=== PATIENT | male | born 1940 | race African-American/Black ===

== ENCOUNTER 2020-09-02 15:29 | Emergency (ER) | payer OTHER ==
[2020-09-02] MEDS ORDERED: ONDANSETRON 4 MG/2 ML VIAL ONE (16:30)
[2020-09-02] MEDS ORDERED: PANTOPRAZOLE 40 MG INJ ONE (16:30)
[2020-09-02] MEDS ORDERED: NA CHLORIDE 0.9% 1,000 ML ONE (16:31)
[2020-09-02] MEDS ORDERED: PANTOPRAZOLE INJ 80 MG in NA CHLORIDE 0.9% 250 ML IV SCH (17:00)
[2020-09-02 17:08] LABS: Absolute Lymphocytes (CBC) 1.5 K/uL (0.7-4.9); Basophils % 0.4 % (0-1.3); Hematocrit 32.5 % (39.6-49.0); Lymphocytes % 9.1 % (15.3-44.8); MPV 6.8 fL (7.6-11.3); RBC Red Blood Cell Count 4.05 M/uL (4.33-5.43)
[2020-09-02 17:09] LABS: Protime INR 1.27
--- NOTE | 2020-09-02 17:25 | RAD REPORT ---
EXAM DESCRIPTION: RAD - Chest Single View - 09/02/2020 5:18 pm CLINICAL HISTORY: COUGH COMPARISON: Portable May 2015 TECHNIQUE: AP portable chest image was obtained 09/02/2020 5:18 pm . FINDINGS: Prominent fibro emphysematous changes are present. There are numerous granulomatous type c alcifications throughout the lung parenchyma and at each hilum. Pattern is not clearly different from the comparison. Heart and vasculature are normal. No measurable pleural effusion and no pneumothorax . No acute bony abnormality seen. No acute aortic findings suspected. IMPRESSION: COPD findings similar to prior imaging. No acute process seen.
[2020-09-02 17:30] LABS: ALT/SGPT 18 U/L (12-78); AST/SGOT 9 U/L (15-37); Albumin 3.4 g/dL (3.4-5.0); Alkaline Phosphatase 74 U/L (45-117); BUN Blood Urea Nitrogen 19 mg/dL (7-18); Bicarbonate 25 mmol/L (21-32); Bilirubin Direct < 0.1 mg/dL (0-0.2); Bilirubin Total 0.4 mg/dL (0.2-1.0); Glucose Level 153 mg/dL (74-106); Magnesium 2.2 mg/dL (1.8-2.4); NT PRO-BNP 70 pg/mL (<450); Potassium 3.6 mmol/L (3.5-5.1); Protein, Total 7.1 g/dL (6.4-8.2); Sodium Level 142 mmol/L (136-145); Troponin (Emerg Dept Use Only) < 0.02 ng/mL (0.0-0.045)
[2020-09-02 17:37] LABS: Anisocytosis 3+; Blood Morphology Comment NOTED (NOT SEEN); Platelet Estimate ADEQ; White Blood Cell Scan OK (OK)
[2020-09-02] MEDS ORDERED: PIPER/TAZO/NS 3.375gm 3.375 GM/100 ML BAG ONE (17:52)
[2020-09-02 17:55] LABS: Lipase 114 U/L (73-393)
--- NOTE | 2020-09-02 18:04 | RAD REPORT ---
EXAM DESCRIPTION: CT - Chest Abdomen Pelvis W Cont - 09/02/2020 5:50 pm CLINICAL HISTORY: Abdominal distention;Dyspnea COMPARISON: CTANGIO CHEST FOR PE dated 06/06/2015; Chest Single View dated 09/02/2020 TECHNIQUE: Following dynamic enhancement using 100 milliliters nonionic IV contrast, axial imaging o f the chest, abdomen and pelvis was performed. Biphasic technique was utilized through the abdomen. No oral contrast administered. All CT scans are performed using dose optimization technique as appropriate and may include automated exposure control or mA/KV adjustment according to patient size. FINDINGS: Prominent COPD changes are present. Focal parenchymal scarring lateral right upper lobe sh ows no progressive change from 2015. Numerous granulomatous calcifications are seen throughout the carola ng parenchyma, mediastinal region in each hilum. No pleural effusion, pleural thickening or pneumotho rax. No significant aortic or pulmonary arterial tree finding. Mediastinal and hilar regions show no mass or abnormal lymphadenopathy. No chest wall mass or axillary lymphadenopathy. The liver, spleen and pancreas show no suspicious findings. Gallbladder and biliary tree are unremark able. Gallstones can be occult on CT imaging. Symmetric renal function is seen with no mass or hydro nephrosis. No adrenal abnormalities. Stomach is distended by large quantity of food and fluid. No gastric wall thickening or mass. Gastric outlet obstruction is not suspected. No small bowel or large bowel dilatation. No acute GI findings seen. No urinary bladder abnormality suspected. Bladder and pelvic floor assessment are substantially limited due to the bilateral hip implant spray artifact affects. No acute or destructive bony process. No significant vascular findings. IMPRESSION: Advanced COPD changes of the chest. No acute findings seen and no significant change fro m 2015. CT abdomen and pelvis imaging shows no emergent finding. Stomach is distended by a large quantity of food and fluid. A gastric mass is not identifiable on CT imaging.
--- NOTE | 2020-09-02 18:28 | ER ---
Nurse's Notes [facility] Name: Jeffrey Seymour Age: 80 yrs Sex: Male : 1940 Arrival Date: 09/02/2020 Time: 15:34 Bed 8 Private MD: Diagnosis: Vomiting;Gastrointestinal hemorrhage, unspecified-upper;Chronic obstructive pulmonary disease with (acute) exacerbation;Anemia, unspecified;Abdominal tenderness;Elevated white blood cell count Presentation: 09/02 15:34 Chief complaint: EMS states: called out for being nauseous and vomiting several times, em reports being dark brown vomit, had hot shakes and has been weak since about noon today, 20 G LAC, denies pain, reports shortness of breath, hx of lung cancer. Coronavirus screen: Client denies travel out of the [place] in the last 14 days. Ebola Screen: Patient negative for fever greater than or equal to 101.5 degrees Fahrenheit, and additional compatible Ebola Virus Disease symptoms Patient denies exposure to infectious person. Patient denies travel to an Ebola-affected area in the 21 days before illness onset. No symptoms or risks identified at this time. Initial Sepsis Screen: Does the patient meet any 2 criteria? HR > 90 bpm. No. Patient's initial sepsis screen is negative. Does the patient have a suspected source of infection? No. Patient's initial sepsis screen is negative. Risk Assessment: Do you want to hurt yourself or someone else? Patient reports no desire to harm self or others. Onset of symptoms was September 02, 2020. 15:34 Method Of Arrival: EMS: [facility] em 15:34 Acuity: [place] 3 em Triage Assessment: 15:34 General: Appears in no apparent distress. slender, well groomed, Behavior is calm, tw2 cooperative, appropriate for age. Pain: Denies pain. GI: Reports vomiting, bloody vomit, dark. Historical: - Allergies: 15:38 No Known Allergies; em - PMHx: 15:38 Hypertension; lung cancer; em - PSHx: 15:38 Carpal Tunnel Repair; catarcts removed; Appendectomy; em - Immunization history:: Flu vaccine is not up to date. - Social history:: Smoking status: Patient denies any tobacco usage or history of. - Family history:: not pertinent. Screenin:02 Abuse screen: Denies threats or abuse. Nutritional screening: No deficits noted. tw2 Tuberculosis screening: No symptoms or risk factors identified. Fall Risk Secondary diagnosis (15 points) impaired mobility. Assessment: 15:40 General: Appears in no apparent distress. slender, well groomed, Behavior is calm, tw2 cooperative, appropriate for age. Pain: Denies pain. Neuro: Level of Consciousness is awake, alert, obeys commands, Oriented to person, place, time, situation. Cardiovascular: Heart tones S1 S2 Capillary refill < 3 seconds. Respiratory: Airway is patent Respiratory effort is even, unlabored, Respiratory pattern is regular, symmetrical, Breath sounds are clear bilaterally. GI: "i had vomited blood just today". 15:40 : No signs and/or symptoms were reported regarding the genitourinary system. EENT: No tw2 signs and/or symptoms were reported regarding the EENT system. Derm: No signs and/or symptoms reported regarding the dermatologic system. Skin is dry, Skin is pale, Skin temperature is cool. Musculoskeletal: Range of motion: intact in all extremities. 16:02 Reassessment: provider at bedside at this time. tw2 16:36 Reassessment: Patient appears in no apparent distress at this time. No changes from tw2 previously documented assessment. Patient and/or family updated on plan of care and expected duration. Pain level reassessed. 17:19 Reassessment: Patient appears in no apparent distress at this time. No changes from tw2 previously documented assessment. Patient and/or family updated on plan of care and expected duration. Pain level reassessed. 17:55 Reassessment: Patient appears in no apparent distress at this time. No changes from tw2 previously documented assessment. Patient and/or family updated on plan of care and expected duration. Pain level reassessed. pt back from CT at this time. 18:18 Reassessment: Patient appears in no apparent distress at this time. No changes from tw2 previously documented assessment. Patient and/or family updated on plan of care and expected duration. Pain level reassessed. 18:41 Reassessment: Patient appears in no apparent distress at this time. No changes from tw2 previously documented assessment. Patient and/or family updated on plan of care and expected duration. Pain level reassessed. 19:15 General: Appears in no apparent distress. Behavior is calm, cooperative, appropriate lp1 for age. Pain: Denies pain. Neuro: Level of Consciousness is awake, alert, obeys commands, Oriented to person, place, time, situation. Cardiovascular: Patient's skin is warm and dry. Rhythm is sinus tachycardia. Respiratory: Respiratory effort is even, unlabored. GI: Abdomen is non-distended. : No signs and/or symptoms were reported regarding the genitourinary system. Derm: Skin is intact, Skin is dry, Skin is pale. 19:44 Reassessment: Report given to ROX Prince at [facility] for patient transfer to lp1 2461. 20:50 Reassessment: [facility] at bedside to transfer. lp1 20:50 Reassessment: Family at bedside, aware of transfer. Neuro: Level of Consciousness is lp1 awake, alert, obeys commands. Respiratory: Respiratory effort is even, unlabored. Vital Signs: 15:34 BP 133 / 78; Pulse 108; Resp 20; Pulse Ox 97% on R/A; Weight 63.5 kg; Height 5 ft. 10 em in. (177.80 cm); Pain 0/10; 15:35 Temp 97.5(O); tw2 16:36 BP 114 / 70; Pulse 113; Resp 22; Pulse Ox 98% on R/A; tw2 17:20 BP 114 / 60; Pulse 105; Resp 22; Pulse Ox 95% on R/A; tw2 18:17 BP 124 / 67; Pulse 108; Resp 21; Pulse Ox 95% on R/A; tw2 18:41 BP 91 / 61; Pulse 100; Resp 16; Pulse Ox 100% on Nebulizer Mask; tw2 19:30 BP 124 / 75; Pulse 115; Resp 21; Pulse Ox 96% on R/A; lp1 20:00 BP 104 / 63; Pulse 106; Resp 15; Pulse Ox 95% on R/A; lp1 20:59 BP 102 / 63; Pulse 106; Resp 15; Temp 98.3(O); Pulse Ox 96% on R/A; lp1 15:34 Body Mass Index 20.09 (63.50 kg, 177.80 cm) em ED Course: 15:34 Patient arrived in ED. em 15:34 Placed in gown. Bed in low position. Call light in reach. Side rails up X 1. Cardiac tw2 monitor on. Pulse ox on. NIBP on. Warm blanket given. 15:37 Triage completed. em 15:38 Ray Londono MD is Attending Physician. reynaldo 15:38 Arm band placed on. em 16:15 Apryl Harvey RN is Primary Nurse. tw2 16:30 Inserted saline lock: 20 gauge in right antecubital area, using aseptic technique. tw2 Blood collected. Maintain EMS IV. Dressing intact. Site clean \\T\\ dry. Gauge \\T\\ site: 20 G LEFT ac. 16:30 Served as a lobster fisherman during rectal exam. tw2 16:54 Missed attempt(s): 20 gauge in right forearm. Bleeding controlled, band aid applied, tw2 catheter tip intact. Inserted saline lock: 22 gauge in right forearm, using aseptic technique. 17:18 XRAY Chest (1 view) In Process Unspecified. EDMS 17:[address] with LIT Nixon. tw2 17:50 CT Chest, Abdomen, Pelvis - W/Contrast: iv only In Process Unspecified. EDMS 18:[address] Londono with Guy Linn from the [facility] Transfer [place].eb 18:35 connected the GI acquisition manager from [facility] with Dr. Londono for patient transfer eb center. 18:[address] Rodriguez the hospitalist acquisition manager for [facility] with Dr. Londono for patient transfer consultation. 18:56 administrative approval given by guy Linn/ patient has been accepted to [facility] bed 2461/ Dr. Rodriguez has accepted the patient in transfer/report to be called to [phone]. 19:07 Report given to ROX Bay and ROX Sauer. tw2 20:59 Patient transferred, IV remains in place. lp1 Administered Medications: 16:30 Drug: NS 0.9% 500 ml Route: IV; Rate: bolus; Site: right antecubital; tw2 17:09 Follow up: Rate change 125 ml/hr; IV Intake: 500ml tw2 16:32 Drug: Zofran (Ondansetron) 4 mg Route: IVP; Site: right antecubital; tw2 17:05 Follow up: Response: No adverse reaction tw2 16:34 Drug: ProTONIX 80 mg Route: IVP; Site: right antecubital; tw2 16:55 Follow up: Response: No adverse reaction tw2 16:54 Drug: ProTONIX 8 mg/hr Route: IV; Rate: 25 ml/hr; Site: right forearm; tw2 20:59 Follow up: IV Status: Infusion continued upon transfer lp1 17:09 Drug: NS 0.9% 1000 ml Route: IV; Rate: 125 ml/hr; Site: right forearm; tw2 20:59 Follow up: IV Status: Infusion continued upon transfer lp1 18:10 Drug: Zosyn 3.375 grams Route: IVPB; Infused Over: 60 mins; Site: right antecubital; tw2 19:24 Follow up: IV Status: Completed infusion lp1 18:35 Drug: Xopenex 1.25 mg Route: Inhalation; tw2 18:36 Drug: AtroVENT Aerosol 0.5 mg Route: Inhalation; tw2 Intake: 17:09 IV: 500ml; Total: 500ml. tw2 Outcome: 18:27 ER care complete, transfer ordered by MD. jacobs 19:36 Condition: stable lp1 19:36 Instructed on the need for transfer. 21:00 Transferred by ground EMS to [facility], Transfer form completed. lp1 X-rays sent w/ patient. Note: Patient's med list sent with transfer 21:06 Patient left the ED. lp1 Signatures: Dispatcher [employer] EDRay Vigil MD MD cha Munoz, Edgar RN Shanique Dawson RN RN lp1 Apryl Harvey RN RN tw2 Marta Candelaria Corrections: (The following items were deleted from the chart) 16:39 16:36 BP 114 / 70; Pulse 124bpm; Resp 22bpm; Pulse Ox 98% RA; tw2 tw2 16:40 16:39 Temp 97.5F Oral; tw2 tw2 16:42 15:40 GI: "i had vomited blood just today" tw2 tw2 16:42 15:40 Derm: No signs and/or symptoms reported regarding the dermatologic system. tw2 tw2
--- NOTE | 2020-09-02 18:28 | EDPHYS ---
Physician Documentation [facility] Name: Jeffrey Seymour Age: 80 yrs Sex: Male : 1940 Arrival Date: 09/02/2020 Time: 15:34 Bed 8 Private MD: ELIZABETH Physician Ray Londono HPI: 09/02 16:15 This 80 yrs old Black Male presents to ER via EMS with complaints of Nausea/Vomiting. reynaldo 16:15 The patient presents to the emergency department with nausea, vomiting, that is reynaldo intermittent. Onset: The symptoms/episode began/occurred just prior to arrival, this morning. Possible causes: unknown. The symptoms are aggravated by nothing. The symptoms are alleviated by nothing. Associated signs and symptoms: Pertinent positives: belching, GI bleeding. Severity of symptoms: At their worst the symptoms were mild moderate in the emergency department the symptoms have improved mildly. The patient has not experienced similar symptoms in the past. Historical: - Allergies: 15:38 No Known Allergies; em - PMHx: 15:38 Hypertension; lung cancer; em - PSHx: 15:38 Carpal Tunnel Repair; catarcts removed; Appendectomy; em - Immunization history:: Flu vaccine is not up to date. - Social history:: Smoking status: Patient denies any tobacco usage or history of. - Family history:: not pertinent. ROS: 16:15 Constitutional: Negative for fever, chills, and weight loss, Eyes: Negative for injury, reynalod pain, redness, and discharge, ENT: Negative for injury, pain, and discharge, Neck: Negative for injury, pain, and swelling, Cardiovascular: Negative for chest pain, palpitations, and edema, Respiratory: Negative for shortness of breath, cough, wheezing, and pleuritic chest pain, Back: Negative for injury and pain, : Negative for injury, bleeding, discharge, and swelling, MS/Extremity: Negative for injury and deformity, Neuro: Negative for headache, weakness, numbness, tingling, and seizure, Psych: Negative for depression, anxiety, suicide ideation, homicidal ideation, and hallucinations, Allergy/Immunology: Negative for hives, rash, and allergies, Endocrine: Negative for neck swelling, polydipsia, polyuria, polyphagia, and marked weight changes, Hematologic/Lymphatic: Negative for swollen nodes, abnormal bleeding, and unusual bruising. 16:15 Abdomen/GI: Positive for abdominal pain, nausea and vomiting, vomiting, abdominal cramps, black/tarry stool, rectal bleeding. 16:15 Skin: Positive for pallor. Exam: 16:15 Constitutional: This is a well developed, well nourished patient who is awake, alert, reynaldo and in no acute distress. Head/Face: Normocephalic, atraumatic. Eyes: Pupils equal round and reactive to light, extra-ocular motions intact. Lids and lashes normal. Conjunctiva and sclera are non-icteric and not injected. Cornea within normal limits. Periorbital areas with no swelling, redness, or edema. ENT: Nares patent. No nasal discharge, no septal abnormalities noted. Tympanic membranes are normal and external auditory canals are clear. Oropharynx with no redness, swelling, or masses, exudates, or evidence of obstruction, uvula midline. Mucous membranes moist. Neck: Trachea midline, no thyromegaly or masses palpated, and no cervical lymphadenopathy. Supple, full range of motion without nuchal rigidity, or vertebral point tenderness. No Meningismus. Chest/axilla: Normal chest wall appearance and motion. Nontender with no deformity. No lesions are appreciated. Respiratory: Lungs have equal breath sounds bilaterally, clear to auscultation and percussion. No rales, rhonchi or wheezes noted. No increased work of breathing, no retractions or nasal flaring. Back: No spinal tenderness. No costovertebral tenderness. Full range of motion. Male : Normal genitalia with no discharge or lesions. MS/ Extremity: Pulses equal, no cyanosis. Neurovascular intact. Full, normal range of motion. Neuro: Awake and alert, GCS 15, oriented to person, place, time, and situation. Cranial nerves II-XII grossly intact. Motor strength 5/5 in all extremities. Sensory grossly intact. Cerebellar exam normal. Normal gait. Psych: Awake, alert, with orientation to person, place and time. Behavior, mood, and affect are within normal limits. 16:15 Cardiovascular: Rate: tachycardic, Rhythm: regular, Pulses: Pulses are 4+ in bilateral radial, brachial, femoral, popliteal, posterior tibial and and dorsalis pedis arteries.. Heart sounds: normal, Edema: is not appreciated, JVD: is not appreciated. 16:15 Musculoskeletal/extremity: DVT Exam: No signs of deep vein thrombosis. no pain, no swelling, no tenderness, negative Homans' sign noted on exam, no appreciated bluish discoloration, no erythema, no increased warmth. 16:15 Skin: Appearance: Color: pale. 16:19 ECG was reviewed by the Attending Physician. reynaldo 16:26 Abdomen/GI: Rectal exam: is unremarkable, Prostate: normal, rectal tone normal, Stool: reynaldo guaiac positive, hemorrhoid(s), are not appreciated, mass, is not appreciated, swelling, is not appreciated, tenderness, is not appreciated, fecal impaction, is not appreciated, the exam is chaperoned by a family member. Vital Signs: 15:34 BP 133 / 78; Pulse 108; Resp 20; Pulse Ox 97% on R/A; Weight 63.5 kg; Height 5 ft. 10 em in. (177.80 cm); Pain 0/10; 15:35 Temp 97.5(O); tw2 16:36 BP 114 / 70; Pulse 113; Resp 22; Pulse Ox 98% on R/A; tw2 17:20 BP 114 / 60; Pulse 105; Resp 22; Pulse Ox 95% on R/A; tw2 18:17 BP 124 / 67; Pulse 108; Resp 21; Pulse Ox 95% on R/A; tw2 18:41 BP 91 / 61; Pulse 100; Resp 16; Pulse Ox 100% on Nebulizer Mask; tw2 19:30 BP 124 / 75; Pulse 115; Resp 21; Pulse Ox 96% on R/A; lp1 20:00 BP 104 / 63; Pulse 106; Resp 15; Pulse Ox 95% on R/A; lp1 20:59 BP 102 / 63; Pulse 106; Resp 15; Temp 98.3(O); Pulse Ox 96% on R/A; lp1 15:34 Body Mass Index 20.09 (63.50 kg, 177.80 cm) em MDM: 15:39 Patient medically screened. [facility] 16:18 Differential diagnosis: gastritis, pancreatitis. Data reviewed: vital signs, nurses reynaldo notes, lab test result(s), EKG, radiologic studies, plain films. 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 Test interpretation: by ED physician or midlevel provider: ECG, plain radiologic studies. Counseling: I had a detailed discussion with the patient and/or guardian regarding: the historical points, exam findings, and any diagnostic results supporting the discharge/admit diagnosis, the presence of at least one elevated blood pressure reading (>120/80) during this emergency department visit, lab results, radiology results, the need to transfer to another facility, for higher level of care, [facility] does not immediately have the required specialist. 09/02 16:15 Order name: Basic Metabolic Panel; Complete Time: 18:03 [facility] 09/02 16:15 Order name: CBC with Diff; Complete Time: 17:38 [facility] 09/02 16:15 Order name: LFT's; Complete Time: 18:03 [facility] 09/02 16:15 Order name: Magnesium; Complete Time: 18:03 [facility] 09/02 16:15 Order name: NT PRO-BNP; Complete Time: 18:03 [facility] 09/02 16:15 Order name: PT-INR; Complete Time: 17:30 [facility] 09/02 16:15 Order name: Troponin (emerg Dept Use Only); Complete Time: 18:03 [facility] 09/02 16:15 Order name: Type And Screen; Complete Time: 18:03 [facility] 09/02 16:30 Order name: Bb Add On eb 09/02 17:32 Order name: Blood Culture Adult (2) [facility] 09/02 17:32 Order name: Lactate; Complete Time: 18:47 [facility] 09/02 17:37 Order name: CBC Smear Scan; Complete Time: 17:38 EDUT 09/02 17:48 Order name: Lipase; Complete Time: 18:03 EDUT 09/02 16:15 Order name: XRAY Chest (1 view); Complete Time: 17:30 [facility] 09/02 16:15 Order name: EKG; Complete Time: 16:16 [facility] 09/02 16:15 Order name: Cardiac monitoring; Complete Time: 16:17 [facility] 09/02 16:15 Order name: EKG - Nurse/Tech; Complete Time: 16:17 [facility] 09/02 16:15 Order name: IV Saline Lock; Complete Time: 16:43 [facility] 09/02 16:15 Order name: Labs collected and sent; Complete Time: 16:43 [facility] 09/02 17:32 Order name: CT Chest, Abdomen, Pelvis - W/Contrast: iv only; Complete Time: 18:47 [facility] 09/02 18:21 Order name: ABO/RH no charge; Complete Time: 18:47 EDMS 09/02 16:15 Order name: O2 Per Protocol; Complete Time: 16:17 reynaldo 09/02 16:15 Order name: O2 Sat Monitoring; Complete Time: 16:17 reynaldo 09/02 16:15 Order name: IV - Large Bore; Complete Time: 16:43 reynaldo EC:19 Rate is 111 beats/min. Rhythm is regular. QRS [place] is Normal. [place] interval is normal. reynaldo QRS interval is normal. QT interval is normal. No Q waves. T waves are Normal. No ST changes noted. Clinical impression: Sinus tachycardia and No evidence of ischemia. Interpreted by me. Reviewed by me. Administered Medications: 16:30 Drug: NS 0.9% 500 ml Route: IV; Rate: bolus; Site: right antecubital; tw2 17:09 Follow up: Rate change 125 ml/hr; IV Intake: 500ml tw2 16:32 Drug: Zofran (Ondansetron) 4 mg Route: IVP; Site: right antecubital; tw2 17:05 Follow up: Response: No adverse reaction tw2 16:34 Drug: ProTONIX 80 mg Route: IVP; Site: right antecubital; tw2 16:55 Follow up: Response: No adverse reaction tw2 16:54 Drug: ProTONIX 8 mg/hr Route: IV; Rate: 25 ml/hr; Site: right forearm; tw2 20:59 Follow up: IV Status: Infusion continued upon transfer lp1 17:09 Drug: NS 0.9% 1000 ml Route: IV; Rate: 125 ml/hr; Site: right forearm; tw2 20:59 Follow up: IV Status: Infusion continued upon transfer lp1 18:10 Drug: Zosyn 3.375 grams Route: IVPB; Infused Over: 60 mins; Site: right antecubital; tw2 19:24 Follow up: IV Status: Completed infusion lp1 18:35 Drug: Xopenex 1.25 mg Route: Inhalation; tw2 18:36 Drug: AtroVENT Aerosol 0.5 mg Route: Inhalation; tw2 Disposition: 09/02/20 18:[address] [facility]. Diagnosis are Vomiting, Gastrointestinal hemorrhage, unspecified - upper, Chronic obstructive pulmonary disease with (acute) exacerbation, Anemia, unspecified, Abdominal tenderness, Elevated white blood cell count. - Reason for transfer: Higher level of care. - Accepting physician is to [facility], tele. - Condition is Fair. - Problem is new. - Symptoms have improved. Signatures: Dispatcher [employer] EDRay Vigil MD MD cha Munoz, Edgar, RN RN Shanique Morris RN RN lp1 Apryl Harvey RN RN tw2 Corrections: (The following items were deleted from the chart) 17:49 17:40 LIPASE+C.LAB.BRZ ordered. [facility] 21:06 18:27 09/02/2020 18:[address] [facility]. lp1 Diagnosis is Vomiting; Gastrointestinal hemorrhage, unspecified - upper; Chronic obstructive pulmonary disease with (acute) exacerbation; Anemia, unspecified; Abdominal tenderness; Elevated white blood cell count. Reason for transfer: Higher level of care. Accepting physician is to [facility], tele. Condition is Fair. Problem is new. Symptoms have improved. reynaldo
[2020-09-02] MEDS ORDERED: IPRATROPIUM BROM 0.5MG/2.5ML ONE (18:44)
[2020-09-02] MEDS ORDERED: LEVALBUTEROL 1.25 MG/3 ML NEB ONE (18:44)
[2020-09-02 21:43] VITALS: BP 102/63; TEMP 98.3; O2SAT 96
--- NOTE | 2020-09-04 11:14 | EKG ---
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
== END 2020-09-02 21:06 | disposition short-term general hospital (02) ==
LOC: ER 15:29
DX: K92.2 Gastrointestinal hemorrhage, unspecified (principal); J44.1 Chronic obstructive pulmonary disease with (acute) exacerbation; D64.9 Anemia, unspecified; D72.829 Elevated white blood cell count, unspecified; R10.819 Abdominal tenderness, unspecified site; I10 Essential (primary) hypertension; Z85.118 Personal history of other malignant neoplasm of bronchus and lung
CPT/HCPCS: 93005; 87040 ×2; 85025; 80048; 36415; 86900; 83735; 86850; 85610; 86901; 80076; 83605; 84484; 83690; 83880; 71260; 74177; 71045; 99285; Q9967; C9113 ×2; J2543; J7050; J7030; J2405

== ENCOUNTER 2022-10-26 00:20 | Inpatient (IN) | payer OTHER ==
--- OUTSIDE RECORDS SUMMARY | 2022-10-26 00:25 | XMS REPORT | Continuity of Care Document ---
:1940 Author Organization [facility] t Address [address] [place] [address] Care Team Providers Name Role Phone Keegan Romero MD [facility] Primary Care Physician Case Dean Attending Clinician Unavailable BAM JOLLY Attending Clinician Unavailable Tadeo Freeman Attending Clinician Unavailable BAHMAN MONTOYA Attending Clinician Unavailable BAM JOLLY Admitting Clinician Unavailable Keegan Romero Admitting Clinician Unavailable Payers Payer Name Policy Type Policy Number Effective Date Expiration Date S natalia [facility] [id number] 2020 00:00:00 (NON-CONTRACTED) Problems Condition Condition Condition Status Onset Resolution Last Treating Co mments Source Name Details Category Date Date Treatment Clinician Date Gastrointe Gastrointe Disease Active 2019-[address] stinal stinal 0-10 [facility] hemorrhage hemorrhage 00:00: Me dical , , 00 Center unspecifie unspecifie d d gastrointe gastrointe stinal stinal hemorrhage hemorrhage type type Allergies, Adverse Reactions, Alerts Allergy Allergy Status Severity Reaction(s) Onset Inactive Treating Comm ents Source Name Type Date Date Clinician hydrocod DA Active [place] 2019-11 [facility] Clear 00:00: Andrew 00 [facility] hydrocod DA Active [place] RASH; 2020-1 [facility] ITCHING 0-19 Clear 00:00: Andrew 00 [facility] On license of [facility] Hydrocod Drug Active Hives 2019-[address] [facility] one-Acet Allergy 0-10 [facility] aminophe 00:00: Medical n 00 Center HYDROCOD Allergy Active Hives 2019-[address] ONE-ACET 0-10 [facility] AMINOPHE 00:00: Medical N 00 [place] Hydrocod Propensi Active Itching Metho di one ty to 2-18 st adverse 00:00: Hospita reaction 00 l s to drug Oxycodon Propensi Active Other (See uknown Me thodi e ty to Comments) 2-18 st adverse 00:00: Hospita reaction 00 l s to drug NO KNOWN Allergy Active [facility] ALLERGIE S Social History Social Habit Start Date Stop Date Quantity Comments Source Alcohol intake 2020-09-05 2020-09-05 [facility] of [facility] (finding) Tobacco use and 2020-09-03 2020-09-03 Never used SAJI Shaw kes exposure 00:00:00 00:00:00 [facility] Cigarettes smoked 2018-04-17 2018-04-[address] current (pack per 00:00:00 00:00:00 [facility] day) - Reported Cigarette 2018-04-17 2018-04-17 [facility] pack-years 00:00:00 00:00:00 Hospital History of tobacco 2017-03-25 Cigarette Smoker [facility] use 00:00:00 Hospital Sex Ass[birth year] At [birth year] SAJI Schneider 00:00:00 00:00:00 [facility] Smoking Status Start Date Stop Date Source Former smoker 2020-09-03 00:00:00 2020-09-03 00:00:00 [facility] Medications Ordered Filled Start Stop Current Ordering Indication Dosage Frequency Signature Comments Components Source Medication Medication Date Date Medication? Clinician (SIG) Name Name aspirin 325 2019-11 Yes 325mg QD Take [address] MG EC 0-10 mg by [facility] tablet 21:34: mouth Medical 40 daily. Center fluticasone 2019-11 Yes 1{puff} Q.5D Inhale [address] -umeclidin- 0-10 puff by [facility] vilanter 21:34: mouth via Medi autumn (Trelegy 40 inhaler 2 [place] Ellip) (two) 100-62.5-25 times mcg DsDv daily. multivitami 2019-11 Yes 1{capsu QD Take [address] n capsule 0-10 le} capsule by Luke s 21:34: mouth Medical 40 daily. [place] albuterol-i 2019-11 Yes 2{puff} Inhale [address] pratropium 0-10 puffs by [facility] (Combivent 21:34: mouth via Me dical Respimat) 40 inhaler Center 20-100 every 6 mcg/actuati (six) on Mist hours as inhaler needed for Wheezing or Shortness of Breath. pravastatin 2019-11 Yes 40mg QD Take [address] (PRAVACHOL) 0-10 by mouth Luke s 40 MG 21:34: nightly. Medical tablet 40 [place] telmisartan 2019-11 Yes 80mg QD Take [address] (MICARDIS) 0-10 by mouth [facility] 80 MG 21:34: daily. Medical tablet 40 [place] finasteride 2019-11 Yes 5mg QD Take [address] (PROSCAR) 5 0-10 by mouth Luke s mg tablet 21:34: daily. Medica l 40 [place] gabapentin 2019-11 Yes 300mg QD Take [address] (NEURONTIN) 0-10 mg by [facility] 300 MG 21:34: mouth Medical capsule 40 daily. [place] megestroL 2019-11 Yes 40mg QD Take [address] (MEGACE) 40 0-10 by mouth Luke s MG tablet 21:34: daily. Medica l 40 [place] aspirin 325 2019-11 Yes 325mg QD Take [address] MG EC 0-10 mg by [facility] tablet 21:34: mouth Medical 40 daily. [place] fluticasone 2019-11 Yes 1{puff} Q.5D Inhale [address] -umeclidin- 0-10 puff by [facility] vilanter 21:34: mouth via Medi autumn (Trelegy 40 inhaler 2 [place] Ellip) (two) 100-62.5-25 times mcg DsDv daily. multivitami 2019-11 Yes 1{capsu QD Take [address] n capsule 0-10 le} capsule by Luke s 21:34: mouth Medical 40 daily. Center albuterol-i 2019-11 Yes 2{puff} Inhale [address] pratropium 0-10 puffs by [facility] (Combivent 21:34: mouth via Me dical Respimat) 40 inhaler Center 20-100 every 6 mcg/actuati (six) on Mist hours as inhaler needed for Wheezing or Shortness of Breath. pravastatin 2019-11 Yes 40mg QD Take [address] (PRAVACHOL) 0-10 by mouth Luke s 40 MG 21:34: nightly. Medical tablet 40 [place] telmisartan 2019-11 Yes 80mg QD Take [address] (MICARDIS) 0-10 by mouth [facility] 80 MG 21:34: daily. Medical tablet 40 [place] finasteride 2019-11 Yes 5mg QD Take [address] (PROSCAR) 5 0-10 by mouth Luke s mg tablet 21:34: daily. Medica l 40 [place] gabapentin 2019-11 Yes 300mg QD Take [address] (NEURONTIN) 0-10 mg by [facility] 300 MG 21:34: mouth Medical capsule 40 daily. [place] megestroL 2019-11 Yes 40mg QD Take [address] (MEGACE) 40 0-10 by mouth Luke s MG tablet 21:34: daily. Medica l 40 [place] pantoprazol 2019-11 Yes Take [address] [facility] e 0-10 tablet bid [facility] (PROTONIX) 00:00: x 6 weeks Me dical 20 MG 00 then Center tablet resume once a day. pantoprazol 2019-11 Yes Take [address] [facility] [facility] e 0-10 tablet bid [facility] (PROTONIX) 00:00: x 6 weeks Me dical 20 MG 00 then Center tablet resume once a day. fluticasone Yes Inhale 1 Me thodi -salmeterol 5-[address] (ADVAIR) 11:10: a day by Hospi ta 250-50 52 inhalation l mcg/dose route. DISKUS aspirin 325 Yes Take by Met hodi MG tablet 5-[address] 11:10: route. Hospita 52 l ipratropium Yes Inhale 2 Me thodi -albuterol 5-[address] (COMBIVENT 11:10: times a Hosp evgeny RESPIMAT) 52 day by l 20-100 inhalation mcg/actuati route. on mist inhaler omega Yes Fish Oil Methodi 3-dha-epa-f 5-24 st ghulam oil 11:10: Hospita (FISH OIL) 52 l 100-160-1,0 00 mg capsule gabapentin Yes Take 1 Metho di (NEURONTIN) 5-[address] 300 mg 11:10: times a Hospita capsule 52 day by l oral route. losartan Yes Take 1 Methodi (COZAAR) 5-[address] 100 MG 11:10: every day Hospit a tablet 52 by oral l route. megestrol Yes Take 1 Method i (MEGACE) 40 5-[address] MG tablet 11:10: twice a Hospi ta 52 day by l oral route. famotidine Yes Take 1 Metho di (PEPCID AC) 5-[address] 10 MG 11:10: every day Hospita tablet 52 by oral l route. pravastatin Yes Take 1 Meth marija (PRAVACHOL) 5-[address] 40 MG 11:10: every day Hospita tablet 52 by oral l route. tiotropium Yes Spiriva Meth marija bromide 5-[address] (SPIRIVA 11:10: Hospita RESPIMAT) 52 l 1.25 mcg/actuati on mist fluticasone Yes Inhale 1 Me thodi -salmeterol 5-[address] (ADVAIR) 11:10: a day by Hospi ta 250-50 52 inhalation l mcg/dose route. DISKUS aspirin 325 Yes Take by Met hodi MG tablet 5-[address] 11:10: route. Hospita 52 l ipratropium Yes Inhale 2 Me thodi -albuterol 5-[address] (COMBIVENT 11:10: times a Hosp evgeny RESPIMAT) 52 day by l 20-100 inhalation mcg/actuati route. on mist inhaler omega Yes Fish Oil Methodi 3-dha-epa-f 5-24 st ghulam oil 11:10: Hospita (FISH OIL) 52 l 100-160-1,0 00 mg capsule gabapentin Yes Take 1 Metho di (NEURONTIN) 5-[address] 300 mg 11:10: times a Hospita capsule 52 day by l oral route. losartan Yes Take 1 Methodi (COZAAR) 5-[address] 100 MG 11:10: every day Hospit a tablet 52 by oral l route. megestrol Yes Take 1 Method i (MEGACE) 40 5-[address] MG tablet 11:10: twice a Hospi ta 52 day by l oral route. famotidine Yes Take 1 Metho di (PEPCID AC) 5-[address] 10 MG 11:10: every day Hospita tablet 52 by oral l route. pravastatin Yes Take 1 Meth marija (PRAVACHOL) 5-[address] 40 MG 11:10: every day Hospita tablet 52 by oral l route. tiotropium Yes Spiriva Meth marija bromide 5-[address] (SPIRIVA 11:10: Hospita RESPIMAT) 52 l 1.25 mcg/actuati on mist Procedures This patient has no known procedures. Plan of Care Planned Activity Planned Date Details Comments Source Future Scheduled 2022-10-26 HEPATITIS B VACCINES Met [facility] Test 00:23:30 (1 of 3 - 3-dose series) [code = HEPATITIS B VACCINES (1 of 3 - 3-dose series)] Future Scheduled 2022-10-26 COVID-19 VACCINE (#1) [facility] Test 00:23:30 [code = COVID-19 VACCINE (#1)] Future Scheduled 2022-10-26 SHINGLES VACCINES (1 Met [facility] Test 00:23:30 of 2) [code = SHINGLES VACCINES (1 of 2)] Future Scheduled 2022-10-26 65+ [facility]CCAL [facility] 00:23:30 VACCINE (1 - PCV) [code = 65+ PNEUMOCOCCAL VACCINE (1 - PCV)] Future Scheduled 2022-10-26 INFLUENZA VACCINE [facility] Test 00:23:30 [code = INFLUENZA VACCINE] Future Scheduled 2022-07-27 HEPATITIS B VACCINES Met [facility] Test 04:54:22 (1 of 3 - 3-dose series) [code = HEPATITIS B VACCINES (1 of 3 - 3-dose series)] Future Scheduled 2022-07-27 COVID-19 VACCINE (#1) [facility] Test 04:54:22 [code = COVID-19 VACCINE (#1)] Future Scheduled 2022-07-27 SHINGLES VACCINES ([facility] 04:54:22 of 2) [code = SHINGLES VACCINES (1 of 2)] Future Scheduled 2022-07-27 65+ [facility]OCCAL [facility] Test 04:54:22 VACCINE (1 - PCV) [code = 65+ PNEUMOCOCCAL VACCINE (1 - PCV)] Future Scheduled 2022-07-27 INFLUENZA VACCINE [facility] Test 04:54:22 [code = INFLUENZA VACCINE] Future Scheduled 2022-07-26 INFLUENZA VACCINE (#1) [facility] Test 00:00:00 [code = INFLUENZA Medical Ce nter VACCINE (#1)] Future Scheduled 2022-07-26 INFLUENZA VACCINE (#1) [facility] Test 00:00:00 [code = INFLUENZA Medical Ce nter VACCINE (#1)] Future Scheduled 2021-11-[address] [facility] Test 00:00:00 (12+) [code = Medical Center DEPRESSION SCREENING (12+)] Future Scheduled 2021-11-25 FALLS RISK SCREENING [facility] Test 00:00:00 [code = FALLS RISK Medical C enter SCREENING] Future Scheduled 2021-11-[address] [facility] Test 00:00:00 (12+) [code = Medical Center DEPRESSION SCREENING (12+)] Future Scheduled 2021-11-25 FALLS RISK SCREENING [facility] Test 00:00:00 [code = FALLS RISK Medical C enter SCREENING] Future Scheduled 2021-09-[address] [facility] Test 00:00:00 Counseling and Medical Cente r Screening (12+) [code = Tobacco Cessation Counseling and Screening (12+)] Future Scheduled 2005 PNEUMOCOCCAL 65+ [facility] Test 00:00:00 (1 - PCV) [code = Medical Ce nter PNEUMOCOCCAL 65+ YRS (1 - PCV)] Future Scheduled 2005 PNEUMOCOCCAL 65+ YRS [facility] Test 00:00:00 (1 - PCV) [code = Medical Ce nter PNEUMOCOCCAL 65+ YRS (1 - PCV)] Future Scheduled 1990 SHINGLES VACCINES ([address] [facility] Test 00:00:00 of 2) [code = SHINGLES Medic al Center VACCINES (1 of 2)] Future Scheduled 1990 SHINGLES VACCINES ([address] [facility] Test 00:00:00 of 2) [code = SHINGLES Medic al Center VACCINES (1 of 2)] Future Scheduled 1959 DTAP/TDAP/TD VACCINES [facility] Test 00:00:00 (1 - Tdap) [code = Medical C enter DTAP/TDAP/TD VACCINES (1 - Tdap)] Future Scheduled 1959 DTAP/TDAP/TD VACCINES [facility] Test 00:00:00 (1 - Tdap) [code = Medical C enter DTAP/TDAP/TD VACCINES (1 - Tdap)] Future Scheduled 1940 COVID-19 VACCINE (#1) [facility] Test 00:00:00 [code = COVID-[address] VACCINE (#1)] Future Scheduled 1940 COVID-19 VACCINE (#1) [facility] Test 00:00:00 [code = COVID-[address] VACCINE (#1)] Encounters Start End Encounter Admission Attending Care Care Encounter Source Date/Time Date/Time Type Type Clinicians Facility Department ID 2020-09-[address] [facility] [id number] [facility] 11:30:00 Case 84 [facility] 2020-09-02 Inpatient TARA JOLLY [facility] Gastro [id number] SLE 23:23:00 BAM 2022-08-10 2022-08-[address] [facility] [id number] [facility] 05:30:00 05:30:00 Tadeo 05 [facility] 2020-07-07 2020-07-07 Outpatient JAN, [facility] [id number] [place] 00:00:00 00:00:00 DHATRI [address] Results Test Description Test Time Test Comments Results Result Comments Source SURGICAL 2022-08-13 13:26:00 Test Item Value Reference Range Interpretation Comme nts SURGICAL RUN (test DATE: 08/13/22 [place] - LAB PAGE 1 RUN TIME: 1326 Specimen Inquiry RUN USER: INTERFACE code = PATIENT: SRMARY HI 05 LOC: [place] #: [id number] AGE/SX: 82/M ROOM: RE08/10/22REG DR: Tadeo Freeman MD : 40 BED: DIS: [place] [facility] [place] SPEC #: [id number] RECD: 08/10/221423 STATUS: TIMMY SULLIVAN #: [id number] ERICH: 08/10/22- SUBM DR: Tadeo Freeman MD ENTERED: 08/10/22 SP TYPE: SURGICAL OTHR DR: Keegan Romero MD ORDERED: [id number], ANATOMIC SPEC COMMENTS: SAME COPIES TO: [place] [address] [place] [address] [address] [place] [address] Keegan Romero MD [address] [place] [address] Dr Valentin [address] [place], [place] [address] PROCEDURES: [id number] (08/10/221424) TISSUES: A. STOMACH BIOPSY/POLYP CLINICAL HISTORY EGD-SEVERE GASTRITIS; COLON-SOLID STOOL , NO BLEEDING FINAL DIAGNOSIS Stomach, biopsy: Mild chronic gastritis. GROSS DESCRIPTION Received i n formalin labeled gastric biopsy are 3 an tissue fragments measuring up to 0.3cm (A). Technical c becki performed at [facility],[address] [place] [id number] Unless gross only, the diagnosis is based upon microscopic examination.Immunohistochemistry: This test was developed and its performance characteristicsdetermined by this laboratory. It has not been approved nor does it need approvalby the [place] FDA. Appropriate posi tive and negative controls are reviewed and judgedto be acceptable. This laboratory is certified unde r the Clinical Laboratory ImprovementAmendments (CLIA-88) as qualified to perform high complexity c linical laboratory testing. CONTINUED ON NEXT PAGE RUN DATE: 08/13/22 [place] - LAB PAGE 2 RUN TIME: 1326 Specimen Inquiry RUN USER: INTERFACE SPEC #: [id number] PATIENT: MARY MARQUEZ #[id number] (Continued) --- MICROSCOPIC DESCRIPTION Sections of the gastric biopsy reveal fundic type gastric mucosa with mild chronicinflammation in the lamina propria. No significant active acute inflammation identified. CLINICAL INFORMATION CHANGE IN BOWEL HABITS, ABD PAIN WT LOSS Signed SIGNATURE ON FILE AnupAkil 08/13/22 1326 END OF REPORT BASIC METABOLIC [id number] 07:21:00 Test Item Value Reference Range Interpretation Comments SODIUM (test code = NA) 140 mEq/L 134-147 N POTASSIUM (test code = 3.5 mEq/L 3.4-5.0 K) CHLORIDE (test code = 102 mEq/L 100-108 N CL) CARBON DIOXIDE (test 32 mEq/l 21-33 N code = CO2) ANION GAP (test code = 10 0-20 N GAP) GLUCOSE (test code = 101 mg/dL 70-110 N GLU) BLOOD UREA NITROGEN 9 mg/dL 7-18 (test code = BUN) GLOMERULAR FILTRATION 80.8 70-80 H Units of measure = RATE (test code = GFR) ml/mi n/1.73 m2 CREATININE (test code = 0.9 mg/dL 0.6-1.3 N CREAT) CALCIUM (test code = 9.2 mg/dL 8.0-10.5 N CA) BASIC METABOLIC [id number] 10:48:00 Test Item Value Reference Range Interpretation Comments SODIUM (test code = NA) 138 mEq/L 134-147 N POTASSIUM (test code = 4.6 mEq/L 3.4-5.0 N K) CHLORIDE (test code = 101 mEq/L 100-108 N CL) CARBON DIOXIDE (test 29 mEq/l 21-33 N code = CO2) ANION GAP (test code = 13 0-20 N GAP) GLUCOSE (test code = 93 mg/dL 70-110 N GLU) BLOOD UREA NITROGEN 7 mg/dL 7-18 N (test code = BUN) GLOMERULAR FILTRATION 92.5 70-80 H Units of measure = RATE (test code = GFR) ml/mi n/1.73 m2 CREATININE (test code = 0.8 mg/dL 0.6-1.3 N CREAT) CALCIUM (test code = 10.2 mg/dL 8.0-10.5 N CA) CBC W/AUTO [id number] 10:36:00 Test Item Value Reference Range Interpretation Comments WHITE BLOOD CELL (test code = 12.5 x10 3/uL 4.5-11.0 H WBC) RED BLOOD CELL (test code = 5.03 x10 6/uL 4.00-5.60 N RBC) HEMOGLOBIN (test code = HGB) 15.7 g/dL 12.5-16.9 N HEMATOCRIT (test code = HCT) 46.1 % 37.5-50.7 N MEAN CELL VOLUME (test code = 91.7 fL 81.0-99.0 N MCV) MEAN CELL HGB (test code = 31.2 pg 27.0-33.0 N MCH) MEAN CELL HGB CONCETRATION 34.1 g/dL 33.0-37.0 N (test code = MCHC) RED CELL DISTRIBUTION WIDTH CV 16.5 % 11.5-14.5 H (test code = RDW) RED CELL DISTRIBUTION WIDTH SD 55.7 fL 37.0-54.0 H (test code = RDW-SD) PLATELET COUNT (test code = 213 x10 3/uL 150-400 N PLT) MEAN PLATELET VOLUME (test 8.9 fL 7.0-9.0 N code = MPV) NEUTROPHIL % (test code = NT%) 84.6 % 56.0-77.0 H IMMATURE GRANULOCYTE % (test 0.6 % 0.0-2.0 N code = IG%) LYMPHOCYTE % (test code = LY%) 7.4 % 14.0-32.0 L MONOCYTE % (test code = MO%) 5.9 % 4.8-9.0 N EOSINOPHIL % (test code = EO%) 0.9 % 0.3-3.7 N BASOPHIL % (test code = BA%) 0.6 % 0.0-2.0 N NUCLEATED RBC % (test code = 0.0 % 0-0 N NRBC%) NEUTROPHIL # (test code = NT#) 10.56 x10 3/uL 2.0-7.6 H IMMATURE GRANULOCYTE # (test 0.08 x10 3/uL 0.00-0.03 H code = IG#) LYMPHOCYTE # (test code = LY#) 0.92 x10 3/uL 1.0-3.8 L MONOCYTE # (test code = MO#) 0.74 x10 3/uL 0.1-0.8 N EOSINOPHIL # (test code = EO#) 0.11 x10 3/uL 0.0-0.2 N BASOPHIL # (test code = BA#) 0.08 x10 3/uL 0.0-0.2 N NUCLEATED RBC # (test code = 0.00 x10 3/uL 0.0-0.1 N NRBC#) MANUAL DIFF REQUIRED (test NO code = MDIFF) - XR CHEST 2 [id number] 00:00:00 [facility] : 1940 Sex: M FAX: Tadeo Little MD [phone] [place]: St: PRE FAX: Radha Maldonado Name: MARY MARQUEZ [facility] [place] : 1940 Age/S: 82/M [address] [place] [address] Unit #: [id number] Loc: [place] [address] Phys: Radha Maldonado NP Acct: [id number] Dis Date: Status: PRE SDC PHONE #: [phone] Exam Date: 08/08/2022 1105 FAX #: [phone] Reason: PREOP EXAMS: CPT CODE: [id number] XR CHEST 2 V 96283 PROCEDURE INFORMATION: Exam: XR Chest Exam date and time: 08/08/2022 10:55 AM Age: 82 years old Clinical indication: Pre- operative exam; Respiratory screening exam; Additional info: Preop TECHNIQUE: Imaging protocol: Radiologic exam of the chest. Views: 2 views. PA and Lateral COMPARISON: DX XR CHEST 2 V 09/12/2020 12:42 PM FINDINGS: Lungs: Nonspecific ill-defined nodular densities lateral to the left hilar region and in the lateral left mid lung not definitely seen on prior study. Recommend chest CT to exclude malignant tumorous change or other nonspecific alveolitis. Probable mild fibrosis in the lateral right upper lung with small amount of focal pleural thickening in this region similar to prior study. Scatteredsmall calcified granulomas seen about the lungs. Mild patchy reticular opacity in the left lung basemay represent atelectasis, pneumonia or other nonspecific alveolitis. No other focal infiltrates within the lungs. Increased lung volumes suggest emphysematous changes. No definite pleural effusion bilaterally. No pneumothorax bilaterally. Pleural spaces: See "Lungs" finding. Heart/Mediastinum: Cardiac and mediastinal structures are stable including aortic calcification and calcified bilateral hilar nodes. Bones/joints: Degenerative changes are seen about the thoracic spine. IMPRESSION: Nonspecific ill-defined nodular densities lateral to the left hilar region and in the lateral left mid lung not definitely seen on prior study. Recommend chest CT to exclude malignant tumorous change or other nonspecific alveolitis. Probable mild fibrosis in the lateral right upper lung with small amount of focalpleural thickening in this region similar to prior study. Scattered small calcified granulomas seen about the lungs. Mild patchy reticular opacity in the left lung base may represent atelectasis, pneumonia or other nonspecific alveolitis. No other focal infiltrates within the lungs. Increased lung volumes suggest emphysematous changes. PAGE 1 Signed Report (CONTINUED) FAX: Tadeo Little MD [phone] [place]: St: PRE FAX: Radha Maldonado Name: MARY MARQUEZ [facility] : 1940 Age/S: 82/M [address] [place] [address] Unit #: [id number] Loc: [place] [address] Phys: Radha Maldonado [employer]OX ST[employer]ER Acct: [id number] Dis Date: Status: PRE SDC PHONE #: [phone] Exam Date: 08/08/2022 1105 FAX #: [phone] Reason: PREOP EXAMS: CPT CODE: [id number] XR CHEST 2 V 66928 (Continued) at 1132 Reported and signed by: Awais Booker M.D. CC: Tadeo Freeman MD; Radha Maldonado [employer]OX STACKER Technologist: RT Lin(R) Trnscrd Date/Time/By: 08/08/2022 (1132) : By: [email or web address] Orig Print D/T: S: 08/08/2022 (7933) PAGE 2 Signed ReportBASIC METABOLIC [id number] 13:09:00 Test Item Value Reference Range Interpretation Comments SODIUM (test code = NA) 142 mEq/L 134-147 N POTASSIUM (test code = 4.3 mEq/L 3.4-5.0 N K) CHLORIDE (test code = 107 mEq/L 100-108 N CL) CARBON DIOXIDE (test 26 mEq/L 21-33 N code = CO2) ANION GAP (test code = 13 0-20 N GAP) GLUCOSE (test code = 89 mg/dL 70-110 N GLU) BLOOD UREA NITROGEN 10 mg/dL 7-18 N (test code = BUN) GLOMERULAR FILTRATION 81.2 70-80 H Units of measure = RATE (test code = GFR) ml/mi n/1.73 m2 CREATININE (test code = 0.9 mg/dL 0.6-1.3 N CREAT) CALCIUM (test code = 9.2 mg/dL 8.0-10.5 N CA) Novel Coronavirus 2018 [id number] 02:23:00 Test Item Value Reference Range Interpretation Comments Novel Coronavirus Negative Negative Positive r esults are 2019 Inhouse (test indicativ e of the presence code = COVNONPUI) ofSARS-CoV -2 RNA, clinical correlation wit h patient historyand othe r diagnostic info rmation is necessary to determinepatien t infection status. Positiv e results do not rule out bacterial infection or co -infection with other viru ses. Negative result s do not preclude SARS-C oV-2 infection andsh ould not be used as the lobo e basis for patient managementdecis ions. Negative result s must be combined with otherclinical observations, p atient history, and epidemiological information . Detection of SARS-CoV-2 RNA may be affe cted bysample collec tion methods, storag e conditions, and /or stageof infection. Gila l RNA mutations, vacc inations, antiviraltherap eutics, antibiotics, chemotherapeuti c orimmunosuppres john drugs have not been e valuated for effectson d etection. Results are for the identification of SARS-CoV-2 RNA usingthe [employer] M2000 Sy stem under the FDA Emergen cy UseAuthorizatio n. The testing is perf ormed by personneltraine d in the procedures for the [place] M2000 molecular diagnostic SARS-CoV-2 assa y in vitro. CBC W/AUTO [id number] 14:42:00 Test Item Value Reference Range Interpretation Comments WHITE BLOOD CELL (test code = 12.7 x10 3/uL 4.5-11.0 H WBC) RED BLOOD CELL (test code = 3.35 x10 6/uL 4.00-5.60 L RBC) HEMOGLOBIN (test code = HGB) 8.7 g/dL 12.5-16.9 L HEMATOCRIT (test code = HCT) 28.4 % 37.5-50.7 L MEAN CELL VOLUME (test code = 84.8 fL 81.0-99.0 N MCV) MEAN CELL HGB (test code = MCH) 26.0 pg 27.0-33.0 L MEAN CELL HGB CONCETRATION 30.6 g/dL 33.0-37.0 L (test code = MCHC) RED CELL DISTRIBUTION WIDTH CV 24.6 % 11.5-14.5 H (test code = RDW) RED CELL DISTRIBUTION WIDTH SD 75.4 fL 37.0-54.0 H (test code = RDW-SD) PLATELET COUNT (test code = 361 x10 3/uL 150-400 N PLT) MEAN PLATELET VOLUME (test code 8.3 fL 7.0-9.0 N = MPV) NEUTROPHIL % (test code = NT%) 74.7 % 56.0-77.0 N IMMATURE GRANULOCYTE % (test 0.5 % 0.0-2.0 N code = IG%) LYMPHOCYTE % (test code = LY%) 15.1 % 14.0-32.0 N MONOCYTE % (test code = MO%) 8.0 % 4.8-9.0 N EOSINOPHIL % (test code = EO%) 0.8 % 0.3-3.7 N BASOPHIL % (test code = BA%) 0.9 % 0.0-2.0 N NUCLEATED RBC % (test code = 0.0 % 0-0 N NRBC%) NEUTROPHIL # (test code = NT#) 9.49 x10 3/uL 2.0-7.6 H IMMATURE GRANULOCYTE # (test 0.06 x10 3/uL 0.00-0.03 H code = IG#) LYMPHOCYTE # (test code = LY#) 1.92 x10 3/uL 1.0-3.8 N MONOCYTE # (test code = MO#) 1.02 x10 3/uL 0.1-0.8 H EOSINOPHIL # (test code = EO#) 0.10 x10 3/uL 0.0-0.2 N BASOPHIL # (test code = BA#) 0.11 x10 3/uL 0.0-0.2 N NUCLEATED RBC # (test code = 0.00 x10 3/uL 0.0-0.1 N NRBC#) MANUAL DIFF REQUIRED (test code NO = MDIFF) RBC [id number] 14:42:00 Test Item Value Reference Range Interpretation Comments POIKILOCYTOSIS (test code = POIK) 1+ ANISOCYTOSIS (test code = ANISO) 2+ SPHEROCYTES (test code = SPH) 1+ - XR CHEST 2 [id number] 13:11:00 [facility] 1940 Sex: M FAX: Malissa Marie [phone] [place]: St: PRE FAX: Case Crane MD [phone] Name: MARY MARQUEZ [facility] : 1940 Age/S: 80/M [address] [place] [address] Unit #: [id number] Loc: [place] [address] Phys: Malissa Morales MD Acct: [id number] Dis Date: [place] [facility] [place] #: [phone] Exam Date: 09/12/2020 1301 FAX #: [phone] Reason: PREOP EXAMS: CPT CODE: [id number] XR CHEST 2 V 24486 CLINICAL HISTORY: PREOP COMPARISON: NONE PA and lateral films of the chest demonstrate that heart size is normal. There is evidence of atheromatous calcification in thoracic aorta. There is flatteningof both hemidiaphragms with hyperinflation of lung holm and increased retrosternal clear space compatible with chronic obstructive lung disease. Multiple calcified granulomas bilaterally as well as calcified hilar lymph nodes are present. Linear opacities in right upper lobe are identified compatible with parenchymal scarring. No evidence of pulmonary consolidation or congestive failure is seen. IMPRESSION: 1. Changes of COPD with linear opacities in the right upper lobe compatible with parenchymal scarring. 2. Calcified granuloma and hilar lymph nodes. 3. No evidence of pulmonary consolidation or congestive failure. at 1311 Reportedand signed by: Abrahan Dean M.D. CC: Malissa Morales MD; Case Dean MD Technologist: NAVI Navarrete RT(R) Trnscrd Date/Time/By: 09/12/2020 (4021) : By: ScottYOJoao Orig Print D/T: S: 09/12/2020 (8244) PAGE 1 Signed ReportCBC W/AUTO [id number] 13:00:00 Test Item Value Reference Range Interpretation Comments WHITE BLOOD CELL (test code = 12.7 x10 3/uL 4.5-11.0 H WBC) RED BLOOD CELL (test code = 3.35 x10 6/uL 4.00-5.60 L RBC) HEMOGLOBIN (test code = HGB) 8.7 g/dL 12.5-16.9 L HEMATOCRIT (test code = HCT) 28.4 % 37.5-50.7 L MEAN CELL VOLUME (test code = 84.8 fL 81.0-99.0 N MCV) MEAN CELL HGB (test code = MCH) 26.0 pg 27.0-33.0 L MEAN CELL HGB CONCETRATION 30.6 g/dL 33.0-37.0 L (test code = MCHC) RED CELL DISTRIBUTION WIDTH CV 24.6 % 11.5-14.5 H (test code = RDW) RED CELL DISTRIBUTION WIDTH SD 75.4 fL 37.0-54.0 H (test code = RDW-SD) PLATELET COUNT (test code = 361 x10 3/uL 150-400 N PLT) MEAN PLATELET VOLUME (test code 8.3 fL 7.0-9.0 N = MPV) NEUTROPHIL % (test code = NT%) 74.7 % 56.0-77.0 N IMMATURE GRANULOCYTE % (test 0.5 % 0.0-2.0 N code = IG%) LYMPHOCYTE % (test code = LY%) 15.1 % 14.0-32.0 N MONOCYTE % (test code = MO%) 8.0 % 4.8-9.0 N EOSINOPHIL % (test code = EO%) 0.8 % 0.3-3.7 N BASOPHIL % (test code = BA%) 0.9 % 0.0-2.0 N NUCLEATED RBC % (test code = 0.0 % 0-0 N NRBC%) NEUTROPHIL # (test code = NT#) 9.49 x10 3/uL 2.0-7.6 H IMMATURE GRANULOCYTE # (test 0.06 x10 3/uL 0.00-0.03 H code = IG#) LYMPHOCYTE # (test code = LY#) 1.92 x10 3/uL 1.0-3.8 N MONOCYTE # (test code = MO#) 1.02 x10 3/uL 0.1-0.8 H EOSINOPHIL # (test code = EO#) 0.10 x10 3/uL 0.0-0.2 N BASOPHIL # (test code = BA#) 0.11 x10 3/uL 0.0-0.2 N NUCLEATED RBC # (test code = 0.00 x10 3/uL 0.0-0.1 N NRBC#) MANUAL DIFF REQUIRED (test code NO = MDIFF) RBC [id number] 13:00:00 Test Item Value Reference Range Interpretation Comments ANISOCYTOSIS (test code = ANISO) CBC W/AUTO [id number] 13:00:00 Test Item Value Reference Range Interpretation Comments WHITE BLOOD CELL (test code = 12.7 x10 3/uL 4.5-11.0 H WBC) RED BLOOD CELL (test code = 3.35 x10 6/uL 4.00-5.60 L RBC) HEMOGLOBIN (test code = HGB) 8.7 g/dL 12.5-16.9 L HEMATOCRIT (test code = HCT) 28.4 % 37.5-50.7 L MEAN CELL VOLUME (test code = 84.8 fL 81.0-99.0 N MCV) MEAN CELL HGB (test code = MCH) 26.0 pg 27.0-33.0 L MEAN CELL HGB CONCETRATION 30.6 g/dL 33.0-37.0 L (test code = MCHC) RED CELL DISTRIBUTION WIDTH CV 24.6 % 11.5-14.5 H (test code = RDW) RED CELL DISTRIBUTION WIDTH SD 75.4 fL 37.0-54.0 H (test code = RDW-SD) PLATELET COUNT (test code = 361 x10 3/uL 150-400 N PLT) MEAN PLATELET VOLUME (test code 8.3 fL 7.0-9.0 N = MPV) NEUTROPHIL % (test code = NT%) 74.7 % 56.0-77.0 N IMMATURE GRANULOCYTE % (test 0.5 % 0.0-2.0 N code = IG%) LYMPHOCYTE % (test code = LY%) 15.1 % 14.0-32.0 N MONOCYTE % (test code = MO%) 8.0 % 4.8-9.0 N EOSINOPHIL % (test code = EO%) 0.8 % 0.3-3.7 N BASOPHIL % (test code = BA%) 0.9 % 0.0-2.0 N NUCLEATED RBC % (test code = 0.0 % 0-0 N NRBC%) NEUTROPHIL # (test code = NT#) 9.49 x10 3/uL 2.0-7.6 H IMMATURE GRANULOCYTE # (test 0.06 x10 3/uL 0.00-0.03 H code = IG#) LYMPHOCYTE # (test code = LY#) 1.92 x10 3/uL 1.0-3.8 N MONOCYTE # (test code = MO#) 1.02 x10 3/uL 0.1-0.8 H EOSINOPHIL # (test code = EO#) 0.10 x10 3/uL 0.0-0.2 N BASOPHIL # (test code = BA#) 0.11 x10 3/uL 0.0-0.2 N NUCLEATED RBC # (test code = 0.00 x10 3/uL 0.0-0.1 N NRBC#) MANUAL DIFF REQUIRED (test code NO = MDIFF) RBC [id number] 13:00:00 Test Item Value Reference Range Interpretation Comments ANISOCYTOSIS (test code = ANISO) CBC W/AUTO [id number] 12:55:00 Test Item Value Reference Range Interpretation Comments WHITE BLOOD CELL (test code = x10 3/uL 4.5-11.0 WBC) RED BLOOD CELL (test code = RBC) x10 6/uL 4.00-5.60 HEMOGLOBIN (test code = HGB) g/dL 12.5-16.9 HEMATOCRIT (test code = HCT) % 37.5-50.7 MEAN CELL VOLUME (test code = fL 81.0-99.0 MCV) MEAN CELL HGB (test code = MCH) pg 27.0-33.0 MEAN CELL HGB CONCETRATION (test g/dL 33.0-37.0 code = MCHC) RED CELL DISTRIBUTION WIDTH CV % 11.5-14.5 (test code = RDW) PLATELET COUNT (test code = PLT) 361 x10 3/uL 150-400 N NEUTROPHIL % (test code = NT%) % 56.0-77.0 LYMPHOCYTE % (test code = LY%) % 14.0-32.0 NEUTROPHIL # (test code = NT#) x10 3/uL 2.0-7.6 LYMPHOCYTE # (test code = LY#) x10 3/uL 1.0-3.8 MANUAL DIFF REQUIRED (test code = MDIFF) SARS-COV2/RT-PCR ([facility])2020-09-03 11:52:00 Test Item Value Reference Range Interpretation Comments SARS-COV2/RT-PCR (test Negative Not Detected, Negative, code = [id number]) See external report for linked test SARS-COV-[address] [facility] [place] (test code = [id number]) Negative result for this test determines that SARS-CoV-2 RNA was not present in the specimen above the Limit of Detection (LOD). However, Negative results do not preclude SARS-CoV-2 infection and should not be used as the sole basis for treatment or patient management decisions. Negative results must be combined with clinical observations, patient history, and epidemiological information. A false negative result may occur if a specimen is improperly collected, transported or handled. A false negative result should be considered if patient's recent exposures or clinical presentation indicate that COVID-19 (SARS-CoV-2) is likely and diagnostic tests for other causes of illness are negative. Re-testing should be considered in cases of suspected false negatives.The limit of detection for this assay is 800 copies/mL.This SARS CoV-2 test is a real-time RT-PCR test intended for the qualitative detection of nucleic acid from SARS-CoV-2 in a nasopharyngeal swab specimen collected from individuals suspected of COVID-19 by their healthcare provider.This test has not been Food and Drug Administration (FDA) cleared or approved. This is a modified version of an approved Emergency Use Authorization (EUA) and is in the process of review by the FDA. Once authorized by the FDA, the issued EUA will be effective until the declaration that circumstances exist justifying the authorization of the emergency use ofin vitro diagnostic tests for detection and/or diagnosis of COVID-19 is terminated under Section 564(b)(2) of the Act or the EUA is revoked under Section 564(g) of the Act.Fact Sheet for Healthcare Prov iders:https://www.[employer]/sites/default/files/product/documents/Fact_Sheet_HC _Eancktuqe_Myjm_XSHD-LzO-0.pdfFact Sheet for Healthcare Patients:https://www.[employer]/sites/default/files/product/docume nts/Xktt_Zoedr_Bdoiwqwm_Rjds_GVLQ-JlM-8.pdfPerforming Laboratory:[facility].[place], [place] [address]LNXK-IFAAAAZ METER 2020-09-03 08:00:00 Test Item Value Reference Range Interpretation Comments POC-GLUCOSE METER 87 mg/dL 70-110 : TESTED A T [facility] 6720 (BEAKER) (test code = KARINA Silva [facility], 1538) [address]: Mba Intern/Techni belgica ID = [id number] for URVASHI VAZQUEZ COMPREHENSIVE METABOLIC [id number] 04:30:00 Test Item Value Reference Range Interpretation Comments TOTAL PROTEIN 6.0 gm/dL 6.0-8.3 Specimen sligh tly (BEAKER) (test code = hemoly zed 770) ALBUMIN (BEAKER) 3.5 g/dL 3.5-5.0 Specimen sl ightly (test code = 1145) hemolyzed ALKALINE PHOSPHATASE 55 U/L 40-150 (BEAKER) (test code = 346) BILIRUBIN TOTAL 0.3 mg/dL 0.2-1.2 Specimen sli ghtly (BEAKER) (test code = hemoly zed 377) SODIUM (BEAKER) (test 140 meq/L 136-145 code = 381) POTASSIUM (BEAKER) 4.5 meq/L 3.5-5.1 Specimen slightly (test code = 379) hemolyzed CHLORIDE (BEAKER) 109 meq/L 98-107 H (test code = 382) CO2 (BEAKER) (test 21 meq/L 22-29 L code = 355) BLOOD UREA NITROGEN 34 mg/dL 7-21 H (BEAKER) (test code = 354) CREATININE (BEAKER) 0.75 mg/dL 0.57-1.25 Specimen slightly (test code = 358) hemolyzed GLUCOSE RANDOM 94 mg/dL 70-105 (BEAKER) (test code = 652) CALCIUM (BEAKER) 8.1 mg/dL 8.4-10.2 L (test code = 697) AST (SGOT) (BEAKER) 23 U/L 5-34 Specimen slightly (test code = 353) hemolyzed ALT (SGPT) (BEAKER) 14 U/L 6-55 Specimen slightly (test code = 347) hemolyzed EGFR (BEAKER) (test 121 ESTIMATE D GFR IS code = 1092) mL/min/1.73 sq NOT ACCURA TE m CREATININE CLEARANCE IN PREDICTING GLOMERULAR FILTRATION RATE . ESTIMATED GFR I S NOT APPLICABLE FOR DIALYSIS PATIEN TS. B-TYPE NATRIURETIC FACTOR (BNP)2020-09-03 04:27:00 Test Item Value Reference Range Interpretation Comments B-TYPE NATRIURETIC PEPTIDE (BEAKER) 43 pg/mL 0-100 (test code = 700) PROTHROMBIN [id number] 04:11:00 Test Item Value Reference Range Interpretation Comments PROTIME (BEAKER) (test code = 14.4 seconds 11.9-14.2 H 759) INR (BEAKER) (test code = 370) 1.15 <=5.90 Effective 04/22/2019: PT Reference Range ChangeNew: 11.9-14.2 Previous: 11.7- 14.7RECOMMENDED COUMADIN/WARFARIN INR THERAPY RANGESSTANDARD DOSE: 2.0-3.0 Includes: PROPHYLAXIS for venous thrombosis, systemic embolization; TREATMENT for venous thrombosis and/or pulmonary embolus.HIGH RISK: Target INR is 2.5-3.5 for patients wiht mechanical heart valves.CBC W/PLT COUNT & AUTO [id number] 04:05:00 Test Item Value Reference Range Interpretation Comments WHITE BLOOD CELL COUNT (BEAKER) 14.4 K/ L 3.5-10.5 H (test code = 775) RED BLOOD CELL COUNT (BEAKER) 3.18 M/ L 4.63-6.08 L (test code = 761) HEMOGLOBIN (BEAKER) (test code = 8.4 GM/DL 13.7-17.5 L 410) HEMATOCRIT (BEAKER) (test code = 26.7 % 40.1-51.0 L 411) MEAN CORPUSCULAR VOLUME (BEAKER) 84.0 fL 79.0-92.2 (test code = 753) MEAN CORPUSCULAR HEMOGLOBIN 26.4 pg 25.7-32.2 (BEAKER) (test code = 751) MEAN CORPUSCULAR HEMOGLOBIN CONC 31.5 GM/DL 32.3-36.5 L (BEAKER) (test code = 752) RED CELL DISTRIBUTION WIDTH 26.5 % 11.6-14.4 H (BEAKER) (test code = 412) PLATELET COUNT (BEAKER) (test 223 K/CU MM 150-450 code = 756) MEAN PLATELET VOLUME (BEAKER) 8.8 fL 9.4-12.4 L (test code = 754) NUCLEATED RED BLOOD CELLS 0 /100 WBC 0-0 (BEAKER) (test code = 413) NEUTROPHILS RELATIVE PERCENT 75 % (BEAKER) (test code = 429) LYMPHOCYTES RELATIVE PERCENT 17 % (BEAKER) (test code = 430) MONOCYTES RELATIVE PERCENT 7 % (BEAKER) (test code = 431) EOSINOPHILS RELATIVE PERCENT 0 % (BEAKER) (test code = 432) BASOPHILS RELATIVE PERCENT 0 % (BEAKER) (test code = 437) NEUTROPHILS ABSOLUTE COUNT 10.80 K/ L 1.78-5.38 H (BEAKER) (test code = 670) LYMPHOCYTES ABSOLUTE COUNT 2.42 K/ L 1.32-3.57 (BEAKER) (test code = 414) MONOCYTES ABSOLUTE COUNT (BEAKER) 1.00 K/ L 0.30-0.82 H (test code = 415) EOSINOPHILS ABSOLUTE COUNT 0.03 K/ L 0.04-0.54 L (BEAKER) (test code = 416) BASOPHILS ABSOLUTE COUNT (BEAKER) 0.04 K/ L 0.01-0.08 (test code = 417) IMMATURE GRANULOCYTES-RELATIVE 0 % 0-1 PERCENT (BEAKER) (test code = 280)
[2022-10-26 01:00] LABS: Absolute Lymphocytes (CBC) 2.2 K/uL (0.7-4.9); Hematocrit 40.2 % (39.6-49.0); MCV 97.8 fL (80-100); MPV 6.6 fL (7.6-11.3); RBC Red Blood Cell Count 4.11 M/uL (4.33-5.43)
[2022-10-26 01:10] LABS: Protime INR 1.15
[2022-10-26 01:19] LABS: Albumin 3.6 g/dL (3.4-5.0); Bilirubin Direct 0.1 mg/dL (0-0.2); Bilirubin Total 0.4 mg/dL (0.2-1.0); Potassium 4.6 mmol/L (3.5-5.1); Protein, Total 7.3 g/dL (6.4-8.2)
[2022-10-26] MEDS ORDERED: Ringers Lactate 1,000 ML IV ONE (01:22)
--- NOTE | 2022-10-26 03:01 | EDPHYS ---
Physician Documentation [facility] Name: Jeffrey Seymour Age: 82 yrs Sex: Male : 1940 Arrival Date: 10/26/2022 Time: 00:25 Bed 14 Private MD: ED Physician José Luis Nair HPI: 10/26 01:48 This 82 yrs old Black Male presents to ER via EMS with complaints of Shortness Of ms3 Breath. 01:48 The patient has shortness of breath at rest. Onset: The symptoms/episode began/occurred ms3 3 month(s) ago, and became worse yesterday. Duration: The symptoms are continuous, and are steadily getting worse. The patient's shortness of breath has no apparent modifying factors. Associated signs and symptoms: The patient has no apparent associated signs or symptoms. Severity of symptoms: At their worst the symptoms were severe in the emergency department the symptoms have improved. 82-year-old male presents via [facility] for shortness of breath. Upon EMS arrival patient's oxygen saturation was 49% on room air and patient was tripoding. EMS noted patient's respiratory rate to be 40. EMS describes lung sounds as wheezing in the upper lobes and diminished in the lower lobes. Patient received albuterol/Atrovent, 125 mg of Solu-Medrol, 2 g of magnesium. EMS noted patient's blood glucose level to be 118. Patient states he has had shortness of breath for 4 months that became worse yesterday. Patient denies alleviating or inciting factors. Patient denies pain at this time. Patient denies fevers, chills, cough. Patient does note he has had a 20 to 30 pound weight loss.. Historical: - Allergies: 00:29 Hydrocodone-Acetaminophen; kd3 - Home Meds: 01:35 finasteride 5 mg oral tab 1 tab bedtime [Active]; sertraline 50 mg oral tab 1 tab once kd3 daily [Active]; megestrol 40 mg Oral tab 1 tab 2 times per day [Active]; dicyclomine 10 mg Oral cap 1 cap 3 times per day [Active]; pantoprazole 40 mg oral TbEC 1 tab once daily [Active]; pravastatin 40 mg oral tab 1 tab nightly [Active]; aspirin 81 mg Oral TbEC 1 tab nightly [Active]; nifedipine 30 mg Oral TbER 1 tab once daily [Active]; telmisartan-amlodipine 80-5 mg oral tab 1 tab once daily [Active]; Fish Oil oral cap [Active]; Centrum Silver oral tab [Active]; - PMHx: 00:29 Hypertension; Lung Cancer; Chronic obstructive lung disease; Hypercholesterolemia; kd3 - Immunization history:: Adult Immunizations up to date. - Social history:: Smoking status: unknown. ROS: 01:48 Constitutional: Negative for fever, and chills. Neck: Negative for injury, pain, and ms3 swelling, Cardiovascular: Negative for chest pain, and palpitations. 01:48 Abdomen/GI: Negative for abdominal pain, nausea, vomiting, diarrhea, and constipation, MS/Extremity: Negative for injury and deformity, Skin: Negative for injury, rash, and discoloration. 01:48 Respiratory: Positive for shortness of breath. 01:48 All other systems are negative. Exam: 01:48 Constitutional: This is a well developed, well nourished patient who is awake, alert, ms3 and in no acute distress. Head/Face: Normocephalic, atraumatic. Neck: Trachea midline, no cervical lymphadenopathy. Supple, full range of motion without nuchal rigidity, or vertebral point tenderness. No Meningismus. Chest/axilla: Normal chest wall appearance and motion. Nontender with no deformity. Cardiovascular: Regular rate and rhythm with a normal S1 and S2. No gallops, murmurs, or rubs. Normal PMI, no JVD. No pulse deficits. Respiratory: Lungs have equal breath sounds bilaterally, clear to auscultation and percussion. No rales, rhonchi or wheezes noted. No increased work of breathing, no retractions or nasal flaring. Skin: Warm, dry with normal turgor. Normal color with no rashes, no lesions, and no evidence of cellulitis. MS/ Extremity: Pulses equal, no cyanosis. Neurovascular intact. Full, normal range of motion. 02:13 ECG was reviewed by the Attending Physician. ms3 Vital Signs: 00:25 BP 123 / 67; Pulse 110; Resp 25; Temp 97.3(A); Pulse Ox 95% on Nebulizer Mask; Weight kd3 50.8 kg; 02:00 BP 118 / 66; Pulse 110; Resp 20; Pulse Ox 93% on R/A; kl 03:57 BP 116 / 74; Pulse 105; Resp 22; Pulse Ox 91% on 4 lpm NC; kl MDM: 00:30 Patient medically screened. ms3 02:55 Differential diagnosis: Anemia Chronic Obstructive Pulmonary Disease pneumonia, ms3 Pneumothorax pulmonary edema, Pulmonary Embolism. Data reviewed: vital signs, nurses notes, lab test result(s), EKG, radiologic studies, and as a result, I will admit patient. Counseling: I had a detailed discussion with the patient and/or guardian regarding: the historical points, exam findings, and any diagnostic results supporting the discharge/admit diagnosis, lab results, radiology results, the need for further work-up and treatment in the hospital. ED course: Discussed case with COCO Lakhani, and she accepts patient on behalf of of Dr. Bansal. Discussed labs and imaging with patient. Patient with identified source of infection at this time. Sepsis protocol initiated.. 12 00:30 Order name: Basic Metabolic Panel; Complete Time: 01:24 ms3 10/26 00:30 Order name: CBC with Diff; Complete Time: 01:13 ms3 10/26 00:30 Order name: D-Dimer; Complete Time: 01:13 ms3 10/26 00:30 Order name: LFT's; Complete Time: 01:24 ms3 10/26 00:30 Order name: NT PRO-BNP; Complete Time: 01:24 ms3 10/26 00:30 Order name: PT-INR; Complete Time: 01:13 ms3 10/26 00:30 Order name: Troponin HS; Complete Time: 01:24 ms3 10/26 02:53 Order name: Blood Culture Adult (2) ms3 10/26 02:53 Order name: Lactate w/ 2H reflex if indic.; Complete Time: 05:38 ms3 10/26 02:53 Order name: Ptt, Activated; Complete Time: 03:56 ms3 10/26 03:04 Order name: COVID-19/FLU A+B; Complete Time: 03:53 EDMS 10/26 04:05 Order name: CKMB Creatine Kinase MB EDMS 10/26 04:05 Order name: Creatine Phosphokinase EDMS 10/26 04:05 Order name: Thyroid Stimulating Hormone EDMS 10/26 04:05 Order name: Troponin High Sensitivity EDMS 10/26 04:05 Order name: Urinalysis EDMS 10/26 04:05 Order name: Basic Metabolic Panel EDMS 10/26 04:05 Order name: Basic Metabolic Panel EDMS 10/26 04:05 Order name: Basic Metabolic Panel EDMS 10/26 04:05 Order name: Basic Metabolic Panel EDMS 10/26 04:05 Order name: Basic Metabolic Panel EDMS 10/26 04:05 Order name: Basic Metabolic Panel EDMS 10/26 04:05 Order name: CBC with Automated Diff EDMS 10/26 04:05 Order name: CBC with Automated Diff EDMS 10/26 04:06 Order name: CBC with Automated Diff EDMS 10/26 04:06 Order name: CBC with Automated Diff EDMS 10/26 04:06 Order name: CBC with Automated Diff EDMS 10/26 04:06 Order name: CBC with Automated Diff EDMS 10/26 00:30 Order name: XRAY Chest (1 view) ms3 10/26 00:30 Order name: EKG; Complete Time: 00:31 ms3 10/26 00:30 Order name: Cardiac monitoring; Complete Time: 00:50 ms3 10/26 00:30 Order name: EKG - Nurse/Tech; Complete Time: 00:33 ms3 10/26 00:30 Order name: IV Saline Lock; Complete Time: 00:33 ms3 10/26 00:30 Order name: Labs collected and sent; Complete Time: 00:50 ms3 10/26 00:30 Order name: O2 Per Protocol; Complete Time: 00:50 ms3 10/26 00:30 Order name: O2 Sat Monitoring; Complete Time: 00:50 ms3 10/26 01:12 Order name: CT Chest For PE Angio ms3 10/26 02:53 Order name: Accucheck ms3 10/26 02:53 Order name: IV Saline Lock - Large Bore ms3 10/26 02:53 Order name: Vital Signs; Complete Time: 05:42 ms3 10/26 04:05 Order name: CONS Physician Consult EDMS 10/26 04:05 Order name: Heart Healthy EDMS 10/26 04:06 Order name: Lipid Profile EDMS 10/26 04:06 Order name: Lipid Profile EDMS 10/26 04:06 Order name: Magnesium EDMS 10/26 04:06 Order name: Magnesium EDMS 10/26 04:06 Order name: Phosphorus EDMS 10/26 04:06 Order name: Phosphorus EDMS 10/26 09:20 Order name: Manual Differential EDMS EC:13 Rate is 103 beats/min. Rhythm is regular. QRS [place] is Normal. [place] interval is normal. ms3 QRS interval is normal. Clinical impression: Sinus tachycardia. Interpreted by me. Reviewed by me. Administered Medications: 01:25 Drug: Lactated Ringers Solution 1000 ml Route: IV; Rate: 250 ml/hr; Site: left forearm; kl 04:46 Follow up: IV Status: Completed infusion; IV Intake: 1000ml kl 03:35 Drug: Rocephin (cefTRIAXone) 1 grams Route: IV; Rate: calculated rate; Site: right kl antecubital; 03:41 Drug: AZITHromycin 500 mg Route: IVPB; Infused Over: 1 hrs; Site: right antecubital; kl 04:45 Follow up: IV Status: Completed infusion; IV Intake: 250ml kl Disposition Summary: 10/26/22 03:00 Hospitalization Ordered Hospitalization Status: Inpatient Admission ms3 Provider: Edgar Bansal ms3 Condition: Stable ms3 Problem: new ms3 Symptoms: are unchanged ms3 Bed/Room Type: Standard ms3 Location: Telemetry/MedSurg (Inpatient)(10/26/22 14:01) Room Assignment: [facility](10/26/22 14:01) Diagnosis - Other pneumonia, unspecified organism ms3 - Acute respiratory failure with hypoxia ms3 - Heart failure, unspecified ms3 - Tachypnea, not elsewhere classified ms3 - Tachycardia, unspecified ms3 Forms: - Medication Reconciliation Form ms3 - SBAR form ms3 Signatures: Dispatcher [employer] EDMS Radha Ramirez RN RN kl Webb, Martha RN Jaqueline Tucker RN RN ss Sims, Marcus, DO DO ms3 Bia Wetzel RN RN kd3 Brown, Sophia, PA-C PAAshley sb4 Corrections: (The following items were deleted from the chart) 03:32 03:00 Telemetry/MedSurg (Inpatient) ms3 mw 03:32 03:00 ms3 mw 03:47 03:13 COMPREHENSIVE METABOLIC PANEL+C.LAB.BRZ ordered. EDMS EDMS 04:05 03:13 COVID-19/FLU A+B+MOL.LAB.BRZ ordered. EDMS EDMS 14:01 03:32 [facility] ER HOLD [facility] 14:01 03:32 ERHOLD- [facility]
--- NOTE | 2022-10-26 03:01 | ER ---
Nurse's Notes [facility] Name: Jeffrey Seymour Age: 82 yrs Sex: Male : 1940 Arrival Date: 10/26/2022 Time: 00:25 Bed 14 Private MD: Diagnosis: Other pneumonia, unspecified organism;Acute respiratory failure with hypoxia;Heart failure, unspecified;Tachypnea, not elsewhere classified;Tachycardia, unspecified Presentation: 10/26 00:25 Chief complaint: EMS states: Pt called 911 due to shortness of breath. on scene pt was kd3 tripoding, using accessory muscles, and had bilateral wheezing. Pt was 49% O2 on arrival. pt was given a 3:1 breathing treatment, 125 mg of Solu-Medrol and 2 mg of Mag. pt is now 98 on the breathing treatment. vital signs now stable. Ebola Screen: No symptoms or risks identified at this time. Initial Sepsis Screen: Does the patient meet any 2 criteria? No. Patient's initial sepsis screen is negative. Does the patient have a suspected source of infection? No. Patient's initial sepsis screen is negative. Risk Assessment: Do you want to hurt yourself or someone else? Patient reports no desire to harm self or others. Onset of symptoms was October 26, 2022. 00:25 Method Of Arrival: EMS: [facility] kd3 00:25 Acuity: [place] 3 kd3 00:32 Coronavirus screen: Vaccine status: Patient reports receiving the 2nd dose of the covid kd3 vaccine. [employer]. Triage Assessment: 00:29 General: Appears uncomfortable, Behavior is calm, cooperative. Pain: Denies pain. kd3 Neuro: Level of Consciousness is awake, alert, obeys commands, Oriented to person, place, time, situation. Cardiovascular: Patient's skin is warm and dry. Respiratory: Reports shortness of breath at rest Onset: The symptoms/episode began/occurred suddenly, the patient has moderate shortness of breath. Historical: - Allergies: 00:29 Hydrocodone-Acetaminophen; kd3 - Home Meds: 01:35 finasteride 5 mg oral tab 1 tab bedtime [Active]; sertraline 50 mg oral tab 1 tab once kd3 daily [Active]; megestrol 40 mg Oral tab 1 tab 2 times per day [Active]; dicyclomine 10 mg Oral cap 1 cap 3 times per day [Active]; pantoprazole 40 mg oral TbEC 1 tab once daily [Active]; pravastatin 40 mg oral tab 1 tab nightly [Active]; aspirin 81 mg Oral TbEC 1 tab nightly [Active]; nifedipine 30 mg Oral TbER 1 tab once daily [Active]; telmisartan-amlodipine 80-5 mg oral tab 1 tab once daily [Active]; Fish Oil oral cap [Active]; Centrum Silver oral tab [Active]; - PMHx: 00:29 Hypertension; Lung Cancer; Chronic obstructive lung disease; Hypercholesterolemia; kd3 - Immunization history:: Adult Immunizations up to date. - Social history:: Smoking status: unknown. Screenin:32 Abuse screen: Denies threats or abuse. Denies injuries from another. Nutritional kd3 screening: No deficits noted. Tuberculosis screening: No symptoms or risk factors identified. Fall Risk IV access (20 points). Assessment: 00:32 Cardiovascular: Rhythm is sinus tachycardia. Respiratory: Airway is patent Respiratory kd3 effort is even, Respiratory pattern is tachypnea Breath sounds are diminished bilaterally. Vital Signs: 00:25 BP 123 / 67; Pulse 110; Resp 25; Temp 97.3(A); Pulse Ox 95% on Nebulizer Mask; Weight kd3 50.8 kg; 02:00 BP 118 / 66; Pulse 110; Resp 20; Pulse Ox 93% on R/A; kl 03:57 BP 116 / 74; Pulse 105; Resp 22; Pulse Ox 91% on 4 lpm NC; kl ED Course: 00:25 Patient arrived in ED. kd3 00:29 Triage completed. kd3 00:29 Arm band placed on right wrist. kd3 00:30 José Luis Nair DO is Attending Physician. ms3 00:32 Patient has correct armband on for positive identification. Call light in reach. Side kd3 rails up X2. 00:32 No provider procedures requiring assistance completed. Maintain EMS IV. Dressing kd3 intact. Good blood return noted. Site clean \T\ dry. Gauge \T\ site: 20 g left forarm. 00:33 Bia Wetzel, RN is Primary Nurse. kd3 00:50 Basic Metabolic Panel Sent. kd3 00:50 CBC with Diff Sent. kd3 00:50 D-Dimer Sent. kd3 00:50 LFT's Sent. kd3 00:50 NT PRO-BNP Sent. kd3 00:50 PT-INR Sent. kd3 00:50 Troponin HS Sent. kd3 00:50 Inserted saline lock: 20 gauge in right antecubital area, using aseptic technique. kd3 Blood collected. 00:53 XRAY Chest (1 view) In Process Unspecified. EDMS 01:11 Notified ED physician of a critical lab result(s). ddimer 1138. tw5 02:04 CT Chest For PE Angio In Process Unspecified. EDMS 02:58 Edgar Bansal MD is Hospitalizing Provider. ms3 03:40 Blood Culture Adult (2) Sent. kl 03:40 Lactate w/ 2H reflex if indic. Sent. kl 03:40 Ptt, Activated Sent. kl 03:42 COVID-19/FLU A+B Sent. kd3 03:57 Patient admitted, IV remains in place. kl 07:20 Report given to ROX Veronica. ha1 Administered Medications: 01:25 Drug: Lactated Ringers Solution 1000 ml Route: IV; Rate: 250 ml/hr; Site: left forearm; kl 04:46 Follow up: IV Status: Completed infusion; IV Intake: 1000ml kl 03:35 Drug: Rocephin (cefTRIAXone) 1 grams Route: IV; Rate: calculated rate; Site: right kl antecubital; 03:41 Drug: AZITHromycin 500 mg Route: IVPB; Infused Over: 1 hrs; Site: right antecubital; kl 04:45 Follow up: IV Status: Completed infusion; IV Intake: 250ml kl Medication: 00:32 VIS not applicable for this client. kd3 Intake: 04:45 IV: 250ml; Total: 250ml. kl 04:46 IV: 1000ml; Total: 1250ml. kl Outcome: 03:00 Decision to Hospitalize by Provider. ms3 03:56 Admitted to ER Hold. Please see [facility] for further documentation. kl 03:56 Condition: stable 03:56 Discharge instructions given to patient, family, Instructed on the need for admit, Demonstrated understanding of instructions. 15:04 Patient left the ED. Signatures: Dispatcher Radha Mc RN RN kl Smirch, Shelby, RN RN José Luis Nair DO DO ms3 Clara Royal tw5 Bia Wetzel, RN RN kd3 Dina Middleton RN RN ha1 Corrections: (The following items were deleted from the chart) 03:47 03:40 COMPREHENSIVE METABOLIC PANEL+C.LAB.BRZ drawn and sent. chris HERRERA 04:05 03:41 COVID-19/FLU A+B+MOL.LAB.BRZ drawn and sent. ELIZABETHCO
[2022-10-26] MEDS ORDERED: AZITHROMYCIN 500 MG INJ IVPB ONE (03:32)
[2022-10-26] MEDS ORDERED: CEFTRIAXONE 1000 MG/VIAL ONE (03:32)
[2022-10-26] MEDS ORDERED: NA CHLORIDE 0.9% 250 ML ONE (03:33)
[2022-10-26 03:49] LABS: SARS-COV-2 RT PCR NEGATIVE (NEGATIVE)
[2022-10-26] MEDS ORDERED: ALBUTEROL 2.5 MG/3 ML NEB SOL NEB PRN ×2 (04:03→15:00)
[2022-10-26] MEDS ORDERED: ONDANSETRON 4 MG/2 ML VIAL IV PRN (04:03)
[2022-10-26] MEDS ORDERED: IPRATROPIUM BROM 0.5MG/2.5ML NEB PRN (04:03)
--- NOTE | 2022-10-26 04:05 | P.HP ---
Certification for Inpatient Patient admitted to: Inpatient With expected LOS: >2 Midnights Patient will require the following post-hospital care: None Practitioner: I am a practitioner with admitting privileges, knowledge of patient current condition, hospital course, and medical plan of care. Services: Services provided to patient in accordance with Admission requirements found in Title 42 Section 412.3 of the Code of Federal Regulations Patient History Date of Service: 10/26/22 Reason for admission: Pneumonia History of Present Illness: Patient is an 82 year old male with past medical history of COPD, lung cancer, hypertension, and hyperlipidemia who presented to the ED via EMS with complaints of sudden onset of shortness of breath. He was noted to be 49% on RA. EMS put him on nonrebreather, adminstered breathing treatment, solumedrol, and 2 g magnesium and he improved to 93%. Labs significant for WBC 13, ddimer 1138, trop HS 69. Chest CTA showed "Severe emphysematous changes with superimposed left lower lobe pneumonia. Negative for PE." he was given azithromycin, rocephin, and 1L fluid in ED. He is now saturating appropriately on 4L. Patient is admitted for further management. Allergies hydrocodone [Hydrocodone] Allergy (Mild, Verified 04/25/13 10:27) ITCH No Known Drug Allergies Adverse Reaction (Unknown, Verified 06/07/15 01:06) Unknown Home medications list reviewed: Yes Home Medications: Aspirin 325 mg PO DAILY 10/15/13 Fish Oil/Dha/Epa [Fish Oil 1,200 mg Fish Oil] 1 each PO DAILY 10/15/13 Ipratrop/Albuterol Inhaler [Combivent*] 2 puff IH Q4HP PRN 10/15/13 Megestrol [Megace*] 40 mg PO DAILY 10/15/13 Multivitamin W-Minerals/Lutein [Centrum Silver Tablet] 1 each PO DAILY 10/15/13 Pravastatin [Pravachol*] 40 mg PO BEDTIME 10/15/13 Fluticasone/Salmeterol [Advair 250/50 Diskus*] 1 puff IH BID #1 disk 10/16/13 Tiotropium [place] [Spiriva] 1 spray IH DAILY 10/16/13 Esomeprazole Mag Trihydrate [Nexium] 20 mg PO DAILY 06/07/15 Losartan Potassium [Cozaar] 100 mg PO DAILY 06/07/15 predniSONE [Deltasone] 10 mg PO DAILY 16 Days tab 06/07/15 - Past Medical/Surgical History Diabetic: No -: Hyperlipidemia -: COPD -: Hypertension -: Lung Cancer -: carpal tunnel repair -: right elbow nerve repair -: cataracts Psychosocial/ Personal History: Patient is . - Family History Family History: Reviewed- Non-Contributory - Social History Smoking Status: Current every day smoker Alcohol use: No CD- Drugs: No Caffeine use: Yes Place of Residence: Home Review of Systems Respiratory: Shortness of Breath Physical Examination - Vital Signs Temperature: 97.3 F Blood Pressure: 116/74 Pulse: 105 Respirations: 22 Pulse Ox (%): 91 (4L NC) - Physical Exam General: Alert, In no apparent distress HEENT: Atraumatic, PERRLA, EOMI, Sclerae nonicteric Neck: Supple, No LAD Respiratory: Diminished (lower lobes), Expiratory wheezes (upper lobes) Cardiovascular: Regular rate/rhythm, Normal S1 S2 Gastrointestinal: Normal bowel sounds, No tenderness Musculoskeletal: No tenderness Integumentary: No rashes Neurological: Normal speech, Normal strength at 5/5 x4 extr, Normal tone, Normal affect - Studies Laboratory Data (last 24 hrs) 10/26/22 02:53: Sodium Cancelled, Potassium Cancelled, BUN Cancelled, Creatinine Cancelled, Glucose Cancelled, Total Bilirubin Cancelled, AST Cancelled, ALT Cancelled, Alkaline Phosphatase Cancelled 10/26/22 00:49: APTT 32.7 10/26/22 00:49: PT 12.6 H, INR 1.15 10/26/22 00:49: WBC 13.60 H, Hgb 13.2 L, Hct 40.2, Plt Count 300 10/26/22 00:49: Sodium 137, Potassium 4.6, BUN 26 H, Creatinine 0.73, Glucose 123 H, Total Bilirubin 0.4, AST 11 L, ALT 18, Alkaline Phosphatase 63 Assessment and Plan - Problems (Diagnosis) (1) Acute respiratory failure Current Visit: Yes Status: Acute Qualifiers: Respiratory failure complication: hypoxia Qualified Code(s): J96.01 - Acute respiratory failure with hypoxia (2) Pneumonia Current Visit: Yes Status: Acute Qualifiers: Pneumonia type: due to unspecified organism Laterality: left Lung location: lower lobe of lung Qualified Code(s): J18.9 - Pneumonia, unspecified organism (3) COPD (chronic obstructive pulmonary disease) Current Visit: Yes Status: Chronic Qualifiers: COPD type: emphysema Emphysema type: unspecified Qualified Code(s): J43.9 - Emphysema, unspecified (4) Hypertension Current Visit: Yes Status: Chronic Qualifiers: Hypertension type: primary hypertension Qualified Code(s): I10 - Essential (primary) hypertension (5) Tobacco abuse Current Visit: Yes Status: Chronic - Plan Continue pneumonia treatment with rocephin, azithromycin, IV steroids, and incentive spirometry. Supportive measures with supplemental O2, breathing treatments, antitussives. Aspirin daily. Monitor on telemetry. Pulmonology consult in place. Blood cultures obtained. Lactate negative. Initial troponin slightly elevated at 69. Will trend serial cardiac enzymes. Monitor and replete electrolytes per protocol. Reconcile and continue home medications. Lovenox for VTE prophylaxis. Full code. Discharge Plan: Home Plan to discharge in: Greater than 2 days - Advance Directives Does patient have a Living Will: No Does patient have a Durable POA for Healthcare: Yes - Code Status/Comfort Care Code Status Assessed: Yes Code Status: Full Code Critical Care: No Time Spent Managing Pts Care (In Minutes): 50
[2022-10-26] MEDS ORDERED: ACETAMINOPHEN 325 MG TABLET PO PRN (05:12)
[2022-10-26 05:31] VITALS: BMI 16.0
--- NOTE | 2022-10-26 07:49 | EKG ---
Test Date: 2022-10-26 Test Time: 00:28:36 Shear Grinder Operator Helper: MEASUREMENT RESULTS: Intervals: Rate: 105 CT: 144 QRSD: 70 QT: 320 QTc: 422 [place]: P: 90 CT: 144 QRS: 101 T: 81 INTERPRETIVE STATEMENTS: Suspect arm lead reversal, interpretation assumes no reversal Sinus tachycardia Right atrial enlargement Rightward axis Pulmonary disease pattern Abnormal ECG Compared to ECG 09/02/2020 16:11:57 Atrial abnormality now present Right-axis deviation now present Electronically Signed On 10-26-22 07:48:44 SALES CENTER ASSOCIATE by Juan Campuzano
--- NOTE | 2022-10-26 07:49 | EKG ---
Test Date: 2022-10-26 Test Time: 00:30:45 Retail Helper: MEASUREMENT RESULTS: Intervals: Rate: 103 HI: 148 QRSD: 70 QT: 318 QTc: 416 [place]: P: 89 HI: 148 QRS: 107 T: 87 INTERPRETIVE STATEMENTS: Sinus tachycardia Rightward axis Borderline ECG Compared to ECG 10/26/2022 00:28:36 Atrial abnormality no longer present Electronically Signed On 10-26-22 07:48:43 MEDICAL BILLING AND CODING SPECIALIST by Juan Campuzano
[2022-10-26] MEDS ORDERED: INFLUENZA VACCINE (for 6+ mo) 0.5 ML DOSE IMVAC ONE (08:00)
[2022-10-26 08:26] LABS: Absolute Lymphocytes (CBC) 0.3 K/uL (0.7-4.9); Hematocrit 33.9 % (39.6-49.0); Lymphocytes % 2.7 % (15.3-44.8); MCV 97.2 fL (80-100); MPV 6.5 fL (7.6-11.3); RBC Red Blood Cell Count 3.49 M/uL (4.33-5.43)
[2022-10-26 08:46] LABS: CKMB Creatine Kinase MB 2.8 ng/mL (1.0-3.6); Magnesium 2.3 mg/dL (1.8-2.4); Phosphorus 3.4 mg/dL (2.5-4.9); Potassium 4.3 mmol/L (3.5-5.1); Thyroid Stimulating Hormone 0.456 uIU/mL (0.360-3.740); Troponin High Sensitivity 50.7 pg/mL (<58.9)
[2022-10-26] MEDS ORDERED: ASPIRIN EC 81 MG TAB PO ONE (08:51)
[2022-10-26] MEDS ORDERED: METHYLPREDNISOLONE 40 MG INJ ONE (08:51)
[2022-10-26] MEDS ORDERED: CEFTRIAXONE 1,000 MG in NA CHLORIDE 0.9% 50 ML IVPB SCH ×2 (09:00→21:00)
[2022-10-26] MEDS ORDERED: ASPIRIN EC 81 MG TAB PO SCH (09:00)
[2022-10-26] MEDS ORDERED: AZITHROMYCIN IV 500 MG in NA CHLORIDE 0.9% 250 ML IVPB SCH ×2 (09:00→21:00)
[2022-10-26] MEDS ORDERED: METHYLPREDNISOLONE 40 MG INJ IV SCH (09:00)
[2022-10-26 09:19] LABS: Blood Morphology Comment NOT SEEN (NOT SEEN); Platelet Estimate ADEQ
--- NOTE | 2022-10-26 11:59 | P.CNS ---
Date of Consult: 10/26/22 Reason for Consult: Shortness of breath Chief Complaint: Pneumonia History of Present Illness: Patient is 82 years of age with a history of COPD lung cancer has been having progressive shortness of breath for the past 3 to 4 years patient does not have any oxygen at home does uses bronchodilators including trilogy at home history of lung cancer was treated with chemo and radiation also lost weight denies any cough or phlegm Allergies hydrocodone [Hydrocodone] Allergy (Mild, Verified 04/25/13 10:27) ITCH No Known Drug Allergies Adverse Reaction (Unknown, Verified 06/07/15 01:06) Unknown Home Medications: Aspirin 81 mg PO DAILY 10/15/13 Fish Oil/Dha/Epa [Fish Oil 1,200 mg Fish Oil] 1 each PO DAILY 10/15/13 Ipratrop/Albuterol Inhaler [Combivent*] 2 puff IH Q4HP PRN 10/15/13 Megestrol [Megace*] 40 mg PO BID 10/15/13 Multivitamin W-Minerals/Lutein [Centrum Silver Tablet] 1 each PO DAILY 10/15/13 Pravastatin [Pravachol*] 40 mg PO BEDTIME 10/15/13 Fluticasone/Salmeterol [Advair 250/50 Diskus*] 1 puff IH BID #1 disk 10/16/13 Tiotropium [place] [Spiriva] 1 spray IH DAILY 10/16/13 Esomeprazole Mag Trihydrate [Nexium] 20 mg PO DAILY 06/07/15 Losartan Potassium [Cozaar] 100 mg PO DAILY 06/07/15 predniSONE [Deltasone] 10 mg PO DAILY 16 Days tab 06/07/15 Dicyclomine [Bentyl] 10 mg PO TID 10/26/22 Finasteride 5 mg PO DAILY 10/26/22 Nifedipine [Nifedipine ER] 30 mg PO DAILY 10/26/22 Pantoprazole Sodium [Protonix] 40 mg PO DAILY 10/26/22 Sertraline [Zoloft] 50 mg PO DAILY 10/26/22 Telmisartan/Amlodipine [Telmisartan-Amlodipine 80-5 mg] 1 each PO DAILY 10/26/22 - Past Medical/Surgical History Diabetic: No -: Hyperlipidemia -: COPD -: Hypertension -: Lung Cancer -: carpal tunnel repair -: right elbow nerve repair -: cataracts Psychosocial/ Personal History: Patient is . - Social History Smoking Status: Former smoker Alcohol use: No CD- Drugs: No Caffeine use: Yes Place of Residence: Home Review of Systems 10-point ROS is otherwise unremarkable General: Weakness, Other (Weight loss) Respiratory: Cough, Shortness of Breath Physical Examination Temp Pulse Resp BP Pulse Ox 97.3 F 105 H 22 H 116/74 91 10/26/22 05:43 10/26/22 05:43 10/26/22 05:43 10/26/22 05:43 10/26/22 05:43 General: Alert, Oriented x3 Respiratory: Clear to auscultation bilaterally, Diminished Cardiovascular: No edema, Regular rate/rhythm, Normal S1 S2 Gastrointestinal: Normal bowel sounds, Soft and benign, Non-distended Laboratory Data (last 24 hrs) 10/26/22 02:53: Sodium Cancelled, Potassium Cancelled, BUN Cancelled, Creatinine Cancelled, Glucose Cancelled, Total Bilirubin Cancelled, AST Cancelled, ALT Cancelled, Alkaline Phosphatase Cancelled 10/26/22 00:49: APTT 32.7 10/26/22 00:49: PT 12.6 H, INR 1.15 10/26/22 00:49: WBC 13.60 H, Hgb 13.2 L, Hct 40.2, Plt Count 300 10/26/22 00:49: Sodium 137, Potassium 4.6, BUN 26 H, Creatinine 0.73, Glucose 123 H, Total Bilirubin 0.4, AST 11 L, ALT 18, Alkaline Phosphatase 63 - Problems (1) Pneumonia Current Visit: Yes Status: Acute Plan: Patient is 82 years of age has had progressive deterioration for a long time came in with worsening shortness of breath have a left lower lobe pneumonia on the CT scan however patient does have a history of lung cancer treated with chemo and radiation continues to smoke does not have oxygen at home uses trilogy labs reviewed white count is mildly elevated changed to p.o. prednisone added and p.o. levofloxacin oxygenation blood pressure is stable vital signs are also stable patient's bicarbonate is elevated is probably because severe COPD also ordered some ABGs and for discharge tomorrow on levofloxacin and prednisone follow-up with me in 2 weeks continue with trach qualify for home O2 Qualifiers: Pneumonia type: due to unspecified organism Laterality: left Lung location: lower lobe of lung Qualified Code(s): J18.9 - Pneumonia, unspecified organism
[2022-10-26] MEDS: DULERA 200/5 (MOMETASONE/FORMOTEROL) INHALER IH SCH ×2 (13:00→21:24)
[2022-10-26] MEDS: levoFLOXacin 750 MG TAB PO SCH (13:00)
[2022-10-26] MEDS ORDERED: levoFLOXacin 750 MG TAB ONE (13:08)
[2022-10-26] MEDS: IPRATROPIUM BROM 0.5MG/2.5ML NEB SCH ×2 (14:00→20:30)
[2022-10-26] MEDS: DICYCLOMINE HCL 10 MG CAP PO SCH ×2 (14:00→20:37)
[2022-10-26 17:54] LABS: Arterial Blood Carboxyhemoglob 3.3 % (0-1.5); Blood O2 Saturation 90.1 % (92-98.5)
--- NOTE | 2022-10-26 17:55 | CON ---
History Of Present Illness: This is an 82-year-old male I was consulted for evaluation of pneumonia. The patient has significant history of lung cancer for [address] [facility]. The patient also has history of COPD with longstanding history of tobacco use since age 18. The patient is currently smoking 5 cigarettes per day. Also has significant history of hypertension, kidney inf ection, cataract, right carpal tunnel syndrome, tonsillectomy, coming in with shortness of breath, de creased energy, and decreased appetite. Denies any headache, nausea, vomiting, chest pain, abdominal pain, constipation, or diarrhea. His CTA showed that the patient has severe emphysematous changes w ith superimposed left lower lobe pneumonia. The patient is currently being treated with Levaquin. Gayatri chaney was also on Zithromax and Rocephin. Feels much better today. Denies any other problems. Past Medical History: As per HPI. Social History: Tobacco: Positive. Alcohol: Negative. Family History: Noncontributory. Medications: Levaquin. See MAR for other medications. Allergies: HYDROCODONE. Review of Systems: A 10-point review was performed. Physical Examination: General: This is an 82-year-old male, lying in bed, not in any acute cardiopulmonary distress. Vital Signs: Temperature 97, pulse 77, respirations currently on 4 L nasal cannula. HEENT: Unremarkable. Neck: Supple. Lungs: Basal crackles, left more than right. Heart: S1, S2. Regular. Abdomen: Soft, nontender. Bowel sounds present. Extremities: No edema. Muscle wasting noted. Laboratory Data: Shows WBC 11.6, down from 13.6; hemoglobin 11.1; platelets 251. Chemistry shows BU N of 23, creatinine 0.28, albumin level of 3.6. Micro Data: Blood cultures are pending. Assessment And Plan: Left lower lobe pneumonia in a patient 82-year-old male with significant histor y of chronic obstructive pulmonary disease and lung cancer. Continue current antibiotic total of 10 days. Leukocytosis, improving. Anemia of chronic disease, chronic obstructive pulmonary disease exa cerbation. Continue supportive care and pulmonary hygiene. We will follow the patient as needed. Thank you Dr. Bansal for consult. NF/MODL Voice ID: [id number] Report ID: [id number]
--- NOTE | 2022-10-26 18:39 | RAD REPORT ---
EXAM DESCRIPTION: CT - Chest For Pe Angio - 10/26/2022 6:11 am CLINICAL HISTORY: The patient is 82 years old and is Male; hypoxia, SOB, Hx of lung CA- in remission per patient TECHNIQUE: Axial computed tomographic angiography images of the chest with intravenous contrast. S agittal and coronal reformatted images were created and reviewed. This CT exam was performed using one or more of the following dose reduction techniques: automated exposure control, adjustment of t he mA and/or kV according to patient size, and/or use of iterative reconstruction technique. MIP reconstructed images were created and reviewed. COMPARISON: CT September 02, 2020 FINDINGS: PULMONARY ARTERIES: There are no obvious filling defects identified within the pulmonary arteries to suggest pulmonary embolism. AORTA: No acute findings. No thoracic aortic aneurysm. LUNGS: The lungs are hyperinflated with extensive emphysematous changes. Focal area of peripheral scarring and calcification along with minimal retraction in the right upper lobe is noted. The overa ll appearance is similar to prior exam. Second area of scarring, retraction, and calcification within the right upper lobe is also noted. Consolidation within the left lower lobe is present. A few c alcified granuloma are present throughout the lungs. PLEURAL SPACE: Trace pleural effusions are present. No pneumothorax. HEART: Unremarkable. No cardiomegaly. No significant pericardial effusion. No evidence of R V dysfunction. BONES/JOINTS: No acute fracture. No dislocation. SOFT TISSUES: Unremarkable. LYMPH NODES: Calcified mediastinal hilar lymph nodes are present. IMPRESSION: 1. Severe emphysematous changes with superimposed left lower lobe pneumonia. 2. No evidence of pulmonary embolism. 3. Chronic findings as detailed above. Electronically signed by: Yolis Helms MD 10/26/2022 2:49 AM CARE CLINICIAN Due to temporary technical issues with the PACS/Fluency reporting system, reports are being signed by the in house radiologists without review as a courtesy to insure prompt reporting. The interpreting radiologist is fully responsible for the content of the report.
--- NOTE | 2022-10-26 18:46 | RAD REPORT ---
EXAM DESCRIPTION: RAD - Chest Single View - 10/26/2022 12:52 am CLINICAL HISTORY: Dyspnea TECHNIQUE: Frontal view of the chest. COMPARISON: No relevant prior studies available. FINDINGS: Lungs: Hyperinflation and coarsened interstitial markings. Linear right upper lobe ple ural parenchymal scar. Patchy left basilar opacification. Pleural space: Blunting of the costophrenic angles bilaterally. No pneumothorax. Heart: Unremarkable. No cardiomegaly. Mediastinum: Calcified mediastinal and bilateral hilar lymph nodes. Bones/joints: Unremarkable. Vasculature: Thoracic aortic atherosclerosis. IMPRESSION: Patchy left basilar opacification (atelectasis at/or infiltrate). Possible small bilat eral pleural effusions and/or pleural thickening/scar. Electronically signed by: Julio Shaffer MD 10/26/2022 1:11 AM MULE TENDER Due to temporary technical issues with the PACS/Fluency reporting system, reports are being signed by the in house radiologists without review as a courtesy to insure prompt reporting. The interpreting radiologist is fully responsible for the content of the report.
[2022-10-26] MEDS ORDERED: NA CHLORIDE 0.9% 250 ML IV ONE (20:16)
[2022-10-26] MEDS: predniSONE 20 MG TAB PO SCH (20:33)
[2022-10-26] MEDS: MEGESTROL 40 MG TAB PO SCH (21:23)
[2022-10-26] MEDS ORDERED: ALBUMIN HUMAN 25% 100 ML IV ONE (21:28)
[2022-10-27] MEDS: IPRATROPIUM BROM 0.5MG/2.5ML NEB SCH ×4 (02:45→21:18)
[2022-10-27 06:18] LABS: Absolute Lymphocytes (CBC) 1.2 K/uL (0.7-4.9); Hematocrit 31.7 % (39.6-49.0); Lymphocytes % 8.5 % (15.3-44.8); MCV 96.9 fL (80-100); RBC Red Blood Cell Count 3.27 M/uL (4.33-5.43)
[2022-10-27 06:46] LABS: Potassium 4.6 mmol/L (3.5-5.1)
[2022-10-27] MEDS ORDERED: predniSONE 10 MG TAB ONE (08:44)
[2022-10-27] MEDS ORDERED: NIFEDIPINE XL 30 MG TABLET PO SCH (09:00)
[2022-10-27] MEDS: predniSONE 20 MG TAB PO SCH ×2 (09:00→20:57)
[2022-10-27] MEDS: MEGESTROL 40 MG TAB PO SCH ×2 (10:32→20:56)
[2022-10-27] MEDS: FINASTERIDE 5 MG TAB PO SCH (10:33)
[2022-10-27] MEDS: DICYCLOMINE HCL 10 MG CAP PO SCH ×3 (10:33→20:57)
[2022-10-27] MEDS: levoFLOXacin 750 MG TAB PO SCH (10:33)
[2022-10-27] MEDS: ASPIRIN EC 81 MG TAB PO SCH (10:34)
[2022-10-27] MEDS: SERTRALINE HCL 50 MG TAB PO SCH (10:34)
[2022-10-27] MEDS: DULERA 200/5 (MOMETASONE/FORMOTEROL) INHALER IH SCH ×2 (10:36→20:56)
[2022-10-27] MEDS ORDERED: MIDODRINE HCL 5 MG TABLET PO ONE (21:28)
[2022-10-28] MEDS: IPRATROPIUM BROM 0.5MG/2.5ML NEB SCH ×4 (02:00→20:50)
[2022-10-28 06:24] LABS: Absolute Lymphocytes (CBC) 1.4 K/uL (0.7-4.9); Hematocrit 32.9 % (39.6-49.0); Lymphocytes % 13.2 % (15.3-44.8); MCV 96.7 fL (80-100); MPV 6.6 fL (7.6-11.3); RBC Red Blood Cell Count 3.41 M/uL (4.33-5.43)
[2022-10-28 06:34] LABS: Potassium 4.6 mmol/L (3.5-5.1)
[2022-10-28] MEDS: DICYCLOMINE HCL 10 MG CAP PO SCH ×3 (10:49→20:41)
[2022-10-28] MEDS: SERTRALINE HCL 50 MG TAB PO SCH (10:49)
[2022-10-28] MEDS: levoFLOXacin 750 MG TAB PO SCH (10:49)
[2022-10-28] MEDS: FINASTERIDE 5 MG TAB PO SCH (10:50)
[2022-10-28] MEDS: ASPIRIN EC 81 MG TAB PO SCH (10:50)
[2022-10-28] MEDS: MEGESTROL 40 MG TAB PO SCH ×2 (10:50→20:41)
[2022-10-28] MEDS: DULERA 200/5 (MOMETASONE/FORMOTEROL) INHALER IH SCH ×2 (10:50→20:41)
[2022-10-28] MEDS: predniSONE 20 MG TAB PO SCH ×2 (10:50→20:41)
--- NOTE | 2022-10-28 17:58 | P.PN ---
Date of Service: 10/27/22 Subjective Continues to improve. Patient clinical symptoms are better. Patient's respiratory status is improving. Weaning down the oxygen. Physical Examination - Vital Signs Reviewed - Physical Exam General: Alert, In no apparent distress Respiratory: Diminished (lower lobes), Expiratory wheezes (upper lobes) Cardiovascular: Regular rate/rhythm, Normal S1 S2 Gastrointestinal: Normal bowel sounds, No tenderness Neurological: Normal speech, Normal strength at 5/5 x4 extr, Normal tone, Normal affect Assessment and Plan - Problems (Diagnosis) (1) Acute respiratory failure Current Visit: Yes Status: Acute Respiratory failure complication: hypoxia Qualified Code(s): J96.01 - Acute respiratory failure with hypoxia (2) Pneumonia Current Visit: Yes Status: Acute Pneumonia type: due to unspecified organism Laterality: left Lung location: lower lobe of lung Qualified Code(s): J18.9 - Pneumonia, unspecified organism (3) COPD (chronic obstructive pulmonary disease) Current Visit: Yes Status: Chronic COPD type: emphysema Emphysema type: unspecified Qualified Code(s): J43.9 - Emphysema, unspecified (4) Hypertension Current Visit: Yes Status: Chronic Hypertension type: primary hypertension Qualified Code(s): I10 - Essential (primary) hypertension (5) Tobacco abuse Current Visit: Yes Status: Chronic - Plan Plan: 1. Continue with IV antibiotics 2. Awaiting sputum and blood culture 3. Repeat chest x-ray 4. CT scan of the chest if pneumonia is not improving- 5. Appreciate pulmonary consultation 6. Continue with nebs as needed 7. O2 per protocol 8. Continue with gentle hydration 9. Repeat labs including CBC and renal function in a.m. 10. GI and DVT prophylaxis
--- NOTE | 2022-10-28 17:59 | P.PN ---
Date of Service: 10/28/22 Subjective Patient respiratory status has improved. Clinical symptoms are much better. Physical Examination - Vital Signs Reviewed - Physical Exam General: Alert, In no apparent distress Respiratory: Diminished (lower lobes), Expiratory wheezes (upper lobes) Cardiovascular: Regular rate/rhythm, Normal S1 S2 Gastrointestinal: Normal bowel sounds, No tenderness Neurological: Normal speech, Normal strength at 5/5 x4 extr, Normal tone, Normal affect Assessment and Plan - Problems (Diagnosis) (1) Acute respiratory failure Current Visit: Yes Status: Acute Respiratory failure complication: hypoxia Qualified Code(s): J96.01 - Acute respiratory failure with hypoxia (2) Pneumonia Current Visit: Yes Status: Acute Pneumonia type: due to unspecified organism Laterality: left Lung location: lower lobe of lung Qualified Code(s): J18.9 - Pneumonia, unspecified organism (3) COPD (chronic obstructive pulmonary disease) Current Visit: Yes Status: Chronic COPD type: emphysema Emphysema type: unspecified Qualified Code(s): J43.9 - Emphysema, unspecified (4) Hypertension Current Visit: Yes Status: Chronic Hypertension type: primary hypertension Qualified Code(s): I10 - Essential (primary) hypertension (5) Tobacco abuse Current Visit: Yes Status: Chronic - Plan Plan: 1. Continue with IV antibiotics 2. Awaiting sputum and blood culture 3. Repeat chest x-ray 4. CT scan of the chest if pneumonia is not improving- 5. Appreciate pulmonary consultation 6. Continue with nebs as needed 7. O2 per protocol 8. Continue with gentle hydration 9. Repeat labs including CBC and renal function in a.m. 10. GI and DVT prophylaxis
[2022-10-29] MEDS: IPRATROPIUM BROM 0.5MG/2.5ML NEB SCH ×3 (02:00→14:15)
[2022-10-29 07:11] LABS: Absolute Lymphocytes (CBC) 1.4 K/uL (0.7-4.9); Hematocrit 33.5 % (39.6-49.0); Lymphocytes % 15.8 % (15.3-44.8); MCV 95.9 fL (80-100); MPV 6.9 fL (7.6-11.3)
[2022-10-29 07:23] LABS: Bilirubin Total 0.3 mg/dL (0.2-1.0); Magnesium 2.2 mg/dL (1.8-2.4); Potassium 4.7 mmol/L (3.5-5.1); Protein, Total 5.8 g/dL (6.4-8.2)
--- NOTE | 2022-10-29 07:23 | RAD REPORT ---
EXAM DESCRIPTION: RAD - Chest Single View - 10/29/2022 6:25 am CLINICAL HISTORY: pneumonia COMPARISON: Portable 10/26/2022, CT chest 10/26/2022 TECHNIQUE: AP portable chest image was obtained 10/29/2022 6:25 am . FINDINGS: Fibrotic and hyper expanded lung holm are again noted. Diaphragm is flattened. Numerous granulomatous calcifications are noted. Posterior left lung base pneumonia findings are again noted. There is been no progression. Right lung field remains clear of an acute process. Numerous mediastinal and hilar granulomatous calcifications are present. Heart and vasculature are no rmal. No measurable pleural effusion and no pneumothorax. No acute bony abnormality seen. No acute ao rtic findings suspected. IMPRESSION: Stable appearing left lung base pneumonia superimposed on severe COPD.
[2022-10-29 07:24] LABS: Potassium 4.5 mmol/L (3.5-5.1)
[2022-10-29] MEDS: DULERA 200/5 (MOMETASONE/FORMOTEROL) INHALER IH SCH (09:00)
[2022-10-29] MEDS: levoFLOXacin 750 MG TAB PO SCH (09:00)
[2022-10-29] MEDS: FINASTERIDE 5 MG TAB PO SCH (09:20)
[2022-10-29] MEDS: ASPIRIN EC 81 MG TAB PO SCH (09:20)
[2022-10-29] MEDS: predniSONE 20 MG TAB PO SCH (09:20)
[2022-10-29] MEDS: MEGESTROL 40 MG TAB PO SCH (09:20)
[2022-10-29] MEDS: DICYCLOMINE HCL 10 MG CAP PO SCH ×2 (09:20→13:15)
[2022-10-29] MEDS: SERTRALINE HCL 50 MG TAB PO SCH (09:21)
[2022-10-29 11:59] VITALS: BP 98/53; TEMP 98.2
--- NOTE | 2022-10-29 12:10 | P.PN ---
Subjective Date of Service: 10/29/22 Chief Complaint: COPD exacerbation pneumonia Subjective: Improving (Patient is currently improving no new change feels very weak) Review of Systems General: Weakness Respiratory: Shortness of Breath Physical Examination - Vital Signs Temperature: 98.2 F Blood Pressure: 98/53 Pulse: 95 Respirations: 20 Pulse Ox (%): 95 - Physical Exam General: Alert, Oriented x3 Respiratory: Diminished Cardiovascular: No edema, Regular rate/rhythm Assessment And Plan - Current Problems (Diagnosis) (1) Pneumonia Current Visit: Yes Status: Acute Plan: Patient is 82 years of age admitted with pneumonia is currently doing better he is got presumed severe terminal COPD if he qualifies for home O2 continue with trilogy labs are normal white count normal and for discharge follow-up with me in 2-week Qualifiers: Pneumonia type: due to unspecified organism Laterality: left Lung location: lower lobe of lung Qualified Code(s): J18.9 - Pneumonia, unspecified organism
[2022-10-29 15:25] VITALS: O2SAT 89
--- NOTE | 2022-10-29 18:00 | PN ---
Subjective: Patient is lying in bed. No new acute event. Feels much better today. Denies any ches t pain, abdominal pain, constipation, or diarrhea. Objective: Vital Signs: Temperature 98, pulse 95, respirations 20, blood pressure 98/53. Lungs: Basal crackles. Heart: S1, S2. Regular. Abdomen: Soft, nontender. Bowel sounds present. Extremities: No edema. Laboratory Data: WBC 8.8 down from 13.6, hemoglobin 11.1, platelets 231. Chemistry shows BUN of 16, creatinine 0.6, albumin level was 3. Blood cultures are negative. Chest x-ray done today shows sta ble left lung base, pneumonia, with COPD. Assessment And Plan: History of lung cancer and pneumonia. Patient is currently on Levaquin, doing well. Respiratory failure, improving. Chronic obstructive pulmonary disease exacerbation. Anemia of chronic disease. We will follow patient, and leukocytosis improved. We will follow patient as ne eded. Total course of 10 days. NF/MODL Voice ID: [id number] Report ID: [id number]
--- NOTE | 2022-11-20 22:19 | P.DS ---
Discharge Date: 10/29/22 Disposition: ROUTINE DISCHARGE Discharge Condition: GOOD Reason for Admission: COPD exacerbation pneumonia Brief History of Present Illness: Patient is an 82 year old male with past medical history of COPD, lung cancer, hypertension, and hyperlipidemia who presented to the ED via EMS with complaints of sudden onset of shortness of breath. He was noted to be 49% on RA. EMS put him on nonrebreather, adminstered breathing treatment, solumedrol, and 2 g magnesium and he improved to 93%. Labs significant for WBC 13, ddimer 1138, trop HS 69. Chest CTA showed "Severe emphysematous changes with superimposed left lower lobe pneumonia. Negative for PE." he was given azithromycin, rocephin, and 1L fluid in ED. He is now saturating appropriately on 4L. Patient is admitted for further management. Hospital Course: Patient has done well during hospital stay. Clinically, patient is much better. At this time, patient is stable for discharge home. Patient will follow-up with consultants and PCP as an outpatient. Vital Signs/Physical Exam: Temp Pulse Resp BP Pulse Ox 98.2 F 95 H 20 98/53 L 95 10/29/22 12:10 10/29/22 12:10 10/29/22 12:10 10/29/22 12:10 10/29/22 12:10 General: Alert, In no apparent distress, Oriented x3 Laboratory Data at Discharge: WBC 8.80 K/uL (4.3-10.9) 10/29/22 06:43 Hgb 11.1 g/dL (13.6-17.9) L 10/29/22 06:43 Hct 33.5 % (39.6-49.0) L 10/29/22 06:43 Plt Count 231 K/uL (152-406) 10/29/22 06:43 PT 12.6 SECONDS (9.5-12.5) H 10/26/22 00:49 INR 1.15 10/26/22 00:49 APTT 32.7 SECONDS (24.3-36.9) 10/26/22 00:49 Sodium 136 mmol/L (136-145) 10/29/22 06:43 Sodium 141 mmol/L (136-145) D 10/29/22 06:43 Potassium 4.5 mmol/L (3.5-5.1) 10/29/22 06:43 Potassium 4.7 mmol/L (3.5-5.1) 10/29/22 06:43 BUN 15 mg/dL (7-18) 10/29/22 06:43 BUN 16 mg/dL (7-18) 10/29/22 06:43 Creatinine 0.59 mg/dL (0.55-1.3) 10/29/22 06:43 Creatinine 0.64 mg/dL (0.55-1.3) 10/29/22 06:43 Glucose 113 mg/dL (74-106) H 10/29/22 06:43 Glucose 115 mg/dL (74-106) H 10/29/22 06:43 Phosphorus 3.4 mg/dL (2.5-4.9) 10/26/22 08:09 Magnesium 2.2 mg/dL (1.8-2.4) 10/29/22 06:43 Total Bilirubin 0.3 mg/dL (0.2-1.0) 10/29/22 06:43 AST 18 U/L (15-37) 10/29/22 06:43 ALT 27 U/L (12-78) 10/29/22 06:43 Alkaline Phosphatase 44 U/L (45-117) L 10/29/22 06:43 Triglycerides 48 mg/dL (<150) 10/26/22 08:09 Cholesterol 102 mg/dL (<200) 10/26/22 08:09 HDL Cholesterol 50 mg/dL (40-60) 10/26/22 08:09 Cholesterol/HDL Ratio 2.04 10/26/22 08:09 Home Medications: Aspirin 81 mg PO DAILY 10/15/13 Fish Oil/Dha/Epa [Fish Oil 1,200 mg Fish Oil] 1 each PO DAILY 10/15/13 Ipratrop/Albuterol Inhaler [Combivent*] 2 puff IH Q4HP PRN 10/15/13 Megestrol [Megace*] 40 mg PO BID 10/15/13 Multivitamin W-Minerals/Lutein [Centrum Silver Tablet] 1 each PO DAILY 10/15/13 Pravastatin [Pravachol*] 40 mg PO BEDTIME 10/15/13 Fluticasone/Salmeterol [Advair 250/50 Diskus*] 1 puff IH BID #1 disk 10/16/13 Tiotropium Maria Stein [Spiriva] 1 spray IH DAILY 10/16/13 Esomeprazole Mag Trihydrate [Nexium] 20 mg PO DAILY 06/07/15 Losartan Potassium [Cozaar] 100 mg PO DAILY 06/07/15 predniSONE [Prednisone*] 10 mg PO DAILY 16 Days tab 06/07/15 Dicyclomine [Bentyl*] 10 mg PO TID 10/26/22 Finasteride 5 mg PO DAILY 10/26/22 Nifedipine [Nifedipine ER] 30 mg PO DAILY 10/26/22 Pantoprazole Sodium [Protonix] 40 mg PO DAILY 10/26/22 Sertraline [Zoloft*] 50 mg PO DAILY 10/26/22 Telmisartan/Amlodipine [Telmisartan-Amlodipine 80-5 mg] 1 each PO DAILY 10/26/22 Albuterol Neb [Proventil 0.083% Neb Soln] 2.5 mg NEB [id number] PRN #60 amp 10/29/22 Ipratropium Neb [Atrovent*] 0.5 mg NEB [id number] PRN #60 amp 10/29/22 levoFLOXacin [Levaquin*] 750 mg PO DAILY #7 tab 10/29/22 predniSONE [Prednisone*] 20 mg PO BID #20 tab 10/29/22 New Medications: Ipratropium Neb [Atrovent*] 0.5 mg NEB [id number] PRN #60 amp PRN Reason: cough/wheezing/secretions levoFLOXacin [Levaquin*] 750 mg PO DAILY #7 tab predniSONE [Prednisone*] 20 mg PO BID #20 tab Albuterol Neb [Proventil 0.083% Neb Soln] 2.5 mg NEB [id number] PRN #60 amp PRN Reason: cough/wheezing/secretions/dysp Physician Discharge Instructions: -DC IV and DC home -Follow-up with PCP in 1 to 2 weeks -Follow-up with Pulmonary in 1 to 2 weeks -Please call Dr. Bansal at [phone] if any questions regarding hospital stay -Please call nursing station at [phone] if any nursing or medication questions -Return to the emergency room if symptoms worsen Diet: AHA Activity: Fall precautions Followup: Suraj Cedillo MD [ACTIVE - CAN ADMIT] - NONE,NONE [Primary Care Provider] - Time spent managing pt's care (in minutes): 35
== END 2022-10-29 15:46 | disposition home or self-care (01) | DRG 193 ==
LOC: ER 00:20 → ERHOLD 03:53 → 4TH 14:30
PROVIDERS: ADMIT Hospitalist; ATTEND Hospitalist
DX: J18.9 Pneumonia, unspecified organism (principal); J96.01 Acute respiratory failure with hypoxia; E44.0 Moderate protein-calorie malnutrition; Z68.1 Body mass index [BMI] 19.9 or less, adult; J43.9 Emphysema, unspecified; I10 Essential (primary) hypertension; E78.5 Hyperlipidemia, unspecified; D63.8 Anemia in other chronic diseases classified elsewhere; F17.200 Nicotine dependence, unspecified, uncomplicated; Z88.5 Allergy status to narcotic agent; Z79.82 Long term (current) use of aspirin; Z79.52 Long term (current) use of systemic steroids; Z85.118 Personal history of other malignant neoplasm of bronchus and lung; Z79.899 Other long term (current) drug therapy; Z20.822 Contact with and (suspected) exposure to COVID-19
CPT/HCPCS: 0240U; 36415; 71045; 71275; 80048; 80053; 80061; 80076; 82550; 82553; 82805; 83605; 83735; 83880; 84100; 84145; 84443; 84484; 85025; 85379; 85610; 85730; 87040; 93005; 94010; 94640; 94760; 96361; 96365; 96375; 97116; 97161; 97530; 99285; J0456; J2920; J3535; J7050; J7120; J7512; J7644; P9047; Q9967